=== PATIENT | female | born 1955 | race Caucasian/White ===

== ENCOUNTER 2017-04-03 15:02 | Inpatient (IN) | payer OTHER ==
[~2017-04-03] VITALS: Ht 177.8 cm; Wt 84.0 kg
[~2017-04-03 15:02] MED LIST: ALBU8.5H3 INH; ASPI81TA16 PO; FLOV220 INHALATION; LISI-313 PO; MEGE40TA PO; METH10TA2 PO; PANT40TA3 PO; PRED20TA PO; TRAM-40 PO
[2017-04-03] MEDS ORDERED: LEVALBUTEROL (NEB) 1.25 MG/0.5 ML AMP HHN ONE (15:30)
[2017-04-03] MEDS ORDERED: IPRATROPIUM (NEB) 0.5 MG/2.5 ML AMP HHN ONE (15:30)
[2017-04-03] MEDS ORDERED: ASPIRIN 81 MG TAB PO ONE (16:00)
[2017-04-03 16:10] LABS: BASOPHIL # 0.1 10^3/ul (0.0-0.1); BASOPHILS % 0.6 % (0.0-2.0); EOSINOPHILS # 0.3 10^3/ul (0.0-0.5); EOSINOPHILS % 2.8 % (0.0-7.0); HEMATOCRIT 47.4 % (37.0-47.0); HEMOGLOBIN 15.5 g/dl (12.0-16.0); LYMPHOCYTES # 2.1 10^3/ul (0.8-2.9); LYMPHOCYTES % 20.6 % (15.0-51.0); MEAN CORPUSCULAR HEMOGLOBIN 32.8 pg (29.0-33.0); MEAN CORPUSCULAR HGB CONC 32.7 g/dl (32.0-37.0); MEAN CORPUSCULAR VOLUME 100.2 fl (82.0-101.0); MEAN PLATELET VOLUME 10.8 fl (7.4-10.4); MONOCYTE # 1.1 10^3/ul (0.3-0.9); MONOCYTES % 10.7 % (0.0-11.0); NEUTROPHIL # 6.4 10^3/ul (1.6-7.5); NEUTROPHILS % 64.5 % (39.0-77.0); PLATELET COUNT 174 10^3/UL (140-415); RED BLOOD COUNT 4.73 10^6/ul (4.20-5.40); RED CELL DISTRIBUTION WIDTH 12.7 % (11.5-14.5); WHITE BLOOD COUNT 9.9 10^3/ul (4.8-10.8)
--- NOTE | 2017-04-03 16:20 | RADRPT ---
PROCEDURE: Chest x-ray CLINICAL INDICATION: Chest pain TECHNIQUE: Chest single view COMPARISON: 01/27/2016 FINDINGS: The heart is normal in size. The pulmonary vessels are normal in caliber. The lungs are clear. Th e costophrenic angles are sharp. There are healed right-sided rib fractures. IMPRESSION: No acute cardiopulmonary disease. Healed right-sided rib fractures RPTAT: HH .Jake Holt MD, MD Date Time Electronically viewed and signed by .Jake Holt MD, on 04/03/2017 16:19 .W/
[2017-04-03 16:28] LABS: CALCIUM 9.2 mg/dl (8.4-10.2); CREATININE 2.12 mg/dl (0.44-1.00); POTASSIUM 5.3 mmol/L (3.5-5.1)
[2017-04-03 16:42] LABS: TROPONIN-I 0.033 ng/ml (0.00-0.12)
--- NOTE | 2017-04-03 19:47 | ERD ---
ER Documentation Chief Complaint Chief Complaint pt bib family with c/o sob, wears home o2, hx CHF HPI This 61-year-old female presents with increasing shortness of breath. Even on home O2 she is having more shortness of breath has a history of COPD. She also has a history of congestive heart failure. She has had some mild cough with no fever or chills. Shortness of breath is not responding to home treatments. ROS All systems reviewed and are negative except as per history of present illness. Medications Home Meds Active Scripts Fluticasone Propionate* (Flovent* 220) 13 Gm Aer.w.adap, 2 PUFF INHALATION BID, #1 INHALER Prov:SUMEET PERAZA MD 08/15/15 Prednisone* (Prednisone*) 20 Mg Tab, 20 MG PO BID, #8 TAB Prov:SUMEET PERAZA MD 08/15/15 Albuterol Sulfate* (Proair HFA*) 8.5 Gm Hfa.aer.ad, 2 PUFF INH Q4H Y for WHEEZING AND SOB, #1 INHALER Prov:SUMEET PERAZA MD 08/15/15 Reported Medications Lisinopril* (Lisinopril*) 5 Mg Tablet, 5 MG PO DAILY, #30 TAB 06/30/15 Pantoprazole* (Protonix*) 40 Mg Tablet.dr, 40 MG PO DAILY, TAB 06/30/15 Tramadol Hcl* (Ultram*) 50 Mg Tablet, 50 MG PO DAILY Y for PAIN, TAB 06/30/15 Megestrol Acetate* (Megace*) 40 Mg Tab, 40 MG PO TID, TAB 06/30/15 Aspirin (LOW DOSE ASPIRIN EC) 81 Mg Tablet.dr, 81 MG PO DAILY, #30 TAB 06/30/15 Methadone Hcl* (Methadone*) 10 Mg Tab, 130 MG PO DAILY, TAB 06/30/15 Allergies Allergies: Coded Allergies: No Known Allergy (Unverified , 01/29/16) PMhx/Soc History of Surgery: No Anesthesia Reaction: No Hx Neurological Disorder: No Hx Respiratory Disorders: Yes (COPD) Hx Cardiac Disorders: Yes (CHF) Hx Psychiatric Problems: No Hx Miscellaneous Medical Probl: No Hx Alcohol Use: No Hx Substance Use: Yes (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 Neck: Full range of motion..~ No meningismus. Resp: Oral expiratory wheezes, mild tachypnea Cardio: Regular tachycardia, no murmurs Abd: Soft, non tender, non distended. Normal bowel sounds Skin: No petechiae or rashes Ext: No cyanosis, or edema Neur: Awake and alert and oriented 3, no focal deficits Psych: Normal Mood and Affect Result Diagram: 04/03/17 1535 04/03/17 1535 Results 24 hrs Laboratory Tests Test 04/03/17 15:35 White Blood Count 9.910^3/ul Red Blood Count 4.7310^6/ul Hemoglobin 15.5g/dl Hematocrit 47.4% Mean Corpuscular Volume 100.2fl Mean Corpuscular Hemoglobin 32.8pg Mean Corpuscular Hemoglobin Concent 32.7g/dl Red Cell Distribution Width 12.7% Platelet Count 41234^3/UL Mean Platelet Volume 10.8fl Neutrophils % 64.5% Lymphocytes % 20.6% Monocytes % 10.7% Eosinophils % 2.8% Basophils % 0.6% Nucleated Red Blood Cells % 0.0/100WBC Neutrophils # 6.410^3/ul Lymphocytes # 2.110^3/ul Monocytes # 1.110^3/ul Eosinophils # 0.310^3/ul Basophils # 0.110^3/ul Nucleated Red Blood Cells # 0.010^3/ul Sodium Level 132mmol/L Potassium Level 5.3mmol/L Chloride Level 86mmol/L Carbon Dioxide Level 37mmol/L Anion Gap 14 Blood Urea Nitrogen 56mg/dl Creatinine 2.12mg/dl Glucose Level 68mg/dl Calcium Level 9.2mg/dl Troponin I 0.033ng/ml B-Type Natriuretic Peptide 501PG/ML Current Medications Medications (Trade) Dose Ordered Sig/Nallely Route PRN Reason Start Time Stop Time Status Last Admin Dose Admin Levalbuterol (Xopenex Neb) 2.5 mg ONCE ONCE HHN 04/03/17 15:30 04/03/17 15:31 DC 04/03/17 15:37 Ipratropium Hurley (Atrovent 0.02% (Neb)) 1 mg ONCE ONCE HHN 04/03/17 15:30 04/03/17 15:31 DC 04/03/17 15:37 Aspirin (Aspirin) 324 mg ONCE ONCE PO 04/03/17 16:00 04/03/17 16:01 DC 04/03/17 16:13 Methylprednisolone Sodium Succinate 125 mg 125 mg ONCE ONCE IV 04/03/17 20:00 04/03/17 20:01 UNV Sodium Chloride (NS) 1,000 ml @ 1,000 mls/hr Q1H ONCE IV 04/03/17 20:00 04/03/17 20:59 UNV Procedures/MDM COPD exacerbation with significant on and off tachycardia as well as dehydration. She has dry mucous membranes and a very high BUN and likely secondary to contraction alkalosis. Has baseline renal insufficiency. He was given treatments of Xopenex Atrovent given Solu-Medrol. Also gave her a liter of fluid for her dehydration. Mild hyponatremia is likely secondary to dehydration as well. Patient is still tachycardic and has shortness of breath I think she definitely warrants admission for further treatment of the COPD and careful hydration and consideration of her concomitant congestive heart failure which does not appear to be exacerbated currently. Panel Dr. Min is admitting EKG interpretation #1: Sinus tachycardia rate of 118, right axis deviation, no ST elevations or depressions or T-wave inversions concerning for his acute ischemia, artifact in V4. As you interpretation #2: Sinus tachycardia rate of 107, 3 days deviation, no ST or T-wave changes concerning for acute ischemia. Departure Diagnosis: Primary Impression: COPD exacerbation Additional Impressions: Dehydration Tachycardia Hyponatremia Hyperkalemia Renal insufficiency RK MENDOZA DO Apr 03, 2017 19:47
[2017-04-03] MEDS ORDERED: METHYLPREDNISOLONE 125 MG INJ IV ONE (20:00)
[2017-04-03] MEDS ORDERED: SOD CHLORIDE 0.9% 1,000 ML IV ONE (20:00)
[2017-04-03] MEDS ORDERED: ACETAMINOPHEN 325 MG TAB PO PRN ×2 (20:00→22:30)
[2017-04-03] MEDS ORDERED: ONDANSETRON 4 MG INJ IV PRN ×2 (20:00→22:30)
[2017-04-03 20:48] LABS: CK-MB 4.92 ng/ml (0.0-2.4); TROPONIN-I 0.063 ng/ml (0.00-0.12)
[2017-04-03 21:00] VITALS: Ht 177.8 cm; Wt 84.0 kg
[2017-04-03] MEDS ORDERED: SPIR100T PO (21:42)
[2017-04-03] MEDS ORDERED: FURO40SO PO (21:42)
[2017-04-03 22:22] VITALS: BP 100/64; PULSE 98; RESP 20
[2017-04-03] MEDS ORDERED: BISACODYL (EC) 5 MG TAB PO PRN (22:30)
[2017-04-03] MEDS ORDERED: NACL 0.9% 3 ML SYG IV SCH (22:30)
[2017-04-03] MEDS ORDERED: DOCUSATE SODIUM 100 MG CAP PO PRN (22:30)
[2017-04-03 23:36] VITALS: PULSE 95
[2017-04-03 23:37] VITALS: BP 100/65; RESP 20
[2017-04-04] VITALS (11 sets, daily range): BP systolic 90–117; BP diastolic 53–71; PULSE 85–118; RESP 18–21
[2017-04-04] MEDS: ALBUTEROL/IPRATROPIUM (NEB) 3 ML AMP HHN SCH ×6 (01:00→20:43)
[2017-04-04] MEDS ORDERED: morphine 2 MG INJ IV ONE (05:02)
[2017-04-04] MEDS: METHYLPREDNISOLONE 40 MG INJ IV SCH ×3 (05:11→21:07)
--- NOTE | 2017-04-04 05:56 | HP ---
Date/Time of Note Date/Time of Note DATE: 04/04/17 TIME: 05:40 Assessment/Plan VTE Prophylaxis VTE Prophylaxis Intervention: SCD's Lines/Catheters IV Catheter Type (from [facility]): Saline Lock Assessment/Plan Chief Complaint/Hosp Course This is a 61-year-old female being admitted to the telemetry floor for: #1 shortness of breath: Likely COPD exacerbation versus CHF exacerbation. Patient has poor air movement bilaterally with mild expiratory wheezes. There are no crackles or rales heard on exam. She does not appear volume overloaded. At the current time I do feel like this is more so a COPD exacerbation. We will continue duo nebs every 4 hours. She received a loading dose steroids in the ED will continue Solu-Medrol 30 mg IV 8 hours. We will continue patient's home breathing treatments. As she has been dealing with the symptoms from her approximately 2 weeks and she lives in a senior citizen home I will at the current time started on Levaquin 750 mg every 48 hours, renally dose. I will also try to get a sputum sample for culture. #2 acute on chronic kidney disease: We will check a renal ultrasound, microscopic UA. Will consult nephrology. Renally dose medications. #3 COPD: We will resume all medications, in addition treat as per #1. #4 diabetes mellitus: Diabetic controlled diet, will hold patient's home oral medications, insulin sliding scale #5 CHF: Patient at the current time does not appear to be in any acute heart failure. BNP is 500. Will order an echocardiogram to assess heart function. #6 hepatitis C: Continue monitor #7 history of heroin use: Patient is currently on methadone. She takes approximately methadone 130 mg once daily. Will need to confirm with patient's pain management clinic at [facility] in the a.m. to confirm the patient's dosage. #8 DVT GI prophylaxis: SCDs, Protonix Further treatment strategy will be implemented as per the clinical course Problems: HPI/ROS Admit Date/Time Admit Date/Time Apr 03, 2017 at 19:47 Hx of Present Illness Chief complaint: Shortness of breath This 61-year-old female presents with increasing shortness of breath. Even on home O2 she is having more shortness of breath has a history of COPD. She also has a history of congestive heart failure. She has had some mild cough with no fever or chills. Shortness of breath is not responding to home treatments. Patient states that she is on approximately 3 L of home O2. She does state that she has noticed wheezing and at times she has also coughed up olmstead phlegm. She lives in a senior citizen home where she is on sick contacts. Allergies: NKDA Medications: See SERGIO GARCIA Const: As per HPI Eyes : No pain discharge or redness or change in visual acuity ENT: No pain, sore throat, congestion, congestion, dysphagia or discharge Respiratory: As per HPI Cardiovascular: As per HPI GI : no change in appetite, abdominal pain, nausea, vomiting, diarrhea, constipation, or change in the color his stool Genitourinary: No dysuria, hematuria, flank pain , discharge or CVA tenderness Musculoskeletal: No joint pain, back pain, neck pain, restricted range of motion in neck or joints Skin: No rash, bruising or hives Neuro: No headache, dizziness, syncope, seizure, focal weakness Endocrine: No polyuria, polydipsia, temperature intolerance Psych: No hallucination, depression, anxiety or suicidal ideation PMH/Family/Social Past Medical History Diabetes mellitus COPD, CHF, history of endocarditis, hepatitis C Past Surgical History Past Surgical Hx: appendectomy Family History Significant Family History: no pertinent family hx Social History Alcohol Use: rarely Smoking Status: Current every day smoker Drug Use: other (Last heroin use 2009) Exam/Review of Systems Vital Signs Vitals Vital Signs Date Time Temp Pulse Resp B/P Pulse Ox O2 Delivery O2 Flow Rate FiO2 04/04/17 04:48 2.0 04/04/17 04:48 98 24 86 Nasal Cannula 21 04/04/17 04:05 98.7 111/71 Exam Exam General: Patient is lying in bed in no acute respiratory distress HEENT: Atraumatic, normocephalic. The pupils are equal, round and reactive. Extraocular motor are intact Neck: Supple with full range of motion. No rigidity or meningismus Chest: Right anterior chest tender to palpation Lungs: Poor air movement bilaterally, mild expiratory rales, Heart: Normal S1-S2, Regular rhythm and rate. No overt murmurs appreciated Abdomen: Soft , nontender, nondistended , bowel sounds are present. No guarding no rebound tenderness , No masses or organomegaly. No costovertebral temporal angle mass Extremities: Normal to inspection, no edema no cyanosis Neurologic: Normal mental status, speech normal, cranial nerves II through XII are intact, motor and sensory are intact, no focal weakness Additional Comments PROCEDURE: Chest x-ray CLINICAL INDICATION: Chest pain TECHNIQUE: Chest single view COMPARISON: 01/27/2016 FINDINGS: The heart is normal in size. The pulmonary vessels are normal in caliber. The lungs are clear. The costophrenic angles are sharp. There are healed right- sided rib fractures. IMPRESSION: No acute cardiopulmonary disease. Healed right-sided rib fractures RPTAT: HH .Jake Holt MD, MD Date Time Electronically viewed and signed by .Jake Holt MD, MD on 04/03/2017 16:19 .W/ CC: RK MENDOZA DO EKG interpretation #1: Sinus tachycardia rate of 118, right axis deviation, no ST elevations or depressions or T-wave inversions concerning for his acute ischemia, artifact in V4. EKG interpretation #2: Sinus tachycardia rate of 107, , no ST or T-wave changes concerning for acute ischemia. Above as per ED physician documentation Labs Result Diagram: 04/03/17 1535 04/03/17 1535 Medications Medications Current Medications Ondansetron HCl (Zofran Inj) 4 mg Q6H PRN IV NAUSEA AND/OR VOMITING; Start at 22:30 Acetaminophen (Tylenol Tab) 650 mg Q6H PRN PO PAIN LEVEL 1-3 OR FEVER; Start 04/03/17 at 22:30 Docusate Sodium (Colace) 100 mg Q12H PRN PO CONSTIPATION; Start 04/03/17 at 22 :30 Bisacodyl (Dulcolax) 5 mg DAILY PRN PO CONSTIPATION; Start 04/03/17 at 22:30 Pantoprazole (Protonix Iv) 40 mg DAILY@06 IV Last administered on 04/04/17 05 :11; Admin Dose 40 MG; Start 04/04/17 at 06:00 Methylprednisolone Sodium Succinate (Solu-Medrol) 20 mg Q8 IV Last administered on 11/17/17at 05:11; Admin Dose 20 MG; Start 04/04/17 at 06:00 Albuterol (Ventolin Hfa) 2 puff Q4H PRN INH WHEEZING AND SOB; Start 04/04/17 at 06:00 Aspirin (Halfprin) 81 mg DAILY PO ; Start 04/04/17 at 09:00 Methadone HCl (Methadone) 130 mg DAILY PO ; Start 04/04/17 at 09:00; Status UNV Pantoprazole (Protonix Tab) 40 mg DAILY@06 PO ; Start 04/04/17 at 06:00 Spironolactone (Aldactone) 100 mg BID PO ; Start 04/04/17 at 09:00 Tramadol HCl (Ultram) 50 mg DAILY PRN PO PAIN; Start 04/04/17 at 06:00 Miscellaneous Information 2 puff BID INHALATION ; Start 04/04/17 at 09:00; Status UNV LINK VERDE Apr 04, 2017 05:50
[2017-04-04 05:57] LABS: BASOPHILS % 0.1 % (0.0-2.0); EOSINOPHILS % 0.1 % (0.0-7.0); HEMATOCRIT 42.6 % (37.0-47.0); HEMOGLOBIN 13.7 g/dl (12.0-16.0); LYMPHOCYTES # 0.8 10^3/ul (0.8-2.9); LYMPHOCYTES % 10.5 % (15.0-51.0); MEAN CORPUSCULAR HEMOGLOBIN 32.4 pg (29.0-33.0); MEAN CORPUSCULAR HGB CONC 32.2 g/dl (32.0-37.0); MEAN CORPUSCULAR VOLUME 100.7 fl (82.0-101.0); MEAN PLATELET VOLUME 11.2 fl (7.4-10.4); MONOCYTE # 0.1 10^3/ul (0.3-0.9); MONOCYTES % 0.9 % (0.0-11.0); NEUTROPHIL # 6.7 10^3/ul (1.6-7.5); NEUTROPHILS % 87.6 % (39.0-77.0); RED BLOOD COUNT 4.23 10^6/ul (4.20-5.40); RED CELL DISTRIBUTION WIDTH 12.8 % (11.5-14.5); WHITE BLOOD COUNT 7.7 10^3/ul (4.8-10.8)
[2017-04-04] MEDS ORDERED: PANTOPRAZOLE 40 MG INJ IV SCH (06:00)
[2017-04-04] MEDS ORDERED: LEVOFLOXACIN 750MG/D5W (PMX) 150 ML IVPB SCH (06:00)
[2017-04-04] MEDS ORDERED: traMADol 50 MG TAB PO PRN (06:00)
[2017-04-04] MEDS ORDERED: PANTOPRAZOLE (EC) 40 MG TAB PO SCH (06:00)
[2017-04-04] MEDS ORDERED: NACL 3% FOR INHALATION 15 ML NEBU NEB ONE (06:00)
[2017-04-04] MEDS ORDERED: ALBUTEROL HFA 8 GM INHALER INH PRN (06:00)
[2017-04-04 06:32] LABS: ALBUMIN 3.4 g/dl (3.3-4.9); BILIRUBIN,INDIRECT 0.1 mg/dl (0-1.1); BILIRUBIN,TOTAL 0.1 mg/dl (0.2-1.3); CALCIUM 8.9 mg/dl (8.4-10.2); CHOL/HDL RATIO 2.6 RATIO; CREATININE 2.19 mg/dl (0.44-1.00); MAGNESIUM 2.4 mg/dl (1.7-2.5); POTASSIUM 5.9 mmol/L (3.5-5.1); TOTAL PROTEIN 6.8 g/dl (6.1-8.1)
[2017-04-04 06:40] LABS: CK-MB 4.85 ng/ml (0.0-2.4); TROPONIN-I 0.051 ng/ml (0.00-0.12)
[2017-04-04 06:50] LABS: THYROID STIMULATING HORMONE 0.801 MIU/L (0.465-4.680)
[2017-04-04 07:00] LABS: PLATELET COUNT 139 10^3/UL (140-415); POSITIVE DIFF @See below
[2017-04-04] MEDS: METHADONE 10 MG TAB PO SCH (07:05)
[2017-04-04] MEDS ORDERED: METHADONE 10 MG TAB PO SCH (09:00)
[2017-04-04] MEDS: ASPIRIN (EC) 81 MG TAB PO SCH (09:34)
[2017-04-04] MEDS: SPIRONOLACTONE 50 MG TAB PO SCH ×2 (09:34→21:07)
[2017-04-04] MEDS: LEVOFLOXACIN 750MG/D5W (PMX) 150 ML IVPB SCH (09:34)
--- NOTE | 2017-04-04 12:12 | RADRPT ---
PROCEDURE: US kidney CLINICAL INDICATION: Acute renal failure TECHNIQUE: Multiple real-time images were acquired COMPARISON: Renal ultrasound 01/27/2016 FINDINGS: The right kidney measures 9.4 cm in length; the right kidney previously measured 10.1 cm in length. The left kidney measures 10.8 cm in length; the left kidney previously measured 10.6 cm in length. Bilateral kidney parenchymal echogenicity is slightly increased. The previously noted right kidney s mall presumed stone is not seen on this study. Of note, kidney stones may not be visualized by sonog sulaiman. The previously noted 10 x 8 mm right kidney possible cyst now measures 14 mm in diameter. The previo usly noted 2.0 x 1.9 cm right kidney hypoechoic finding now measures 2.3 x 1.9 cm and may have a sli ghtly irregular wall. New 10 x 9 mm left kidney hypoechoic finding, too small to characterize. No abnormal perirenal fluid collections seen. No hydronephrosis seen. The bladder is predominately collapsed and thus not optimally assessed. IMPRESSION: 1. Bilateral kidney parenchyma slightly increased echogenicity which may be secondary to medical re nal disease. No hydronephrosis seen. 2. The previously noted right kidney small presumed stone is not seen on this study. 3. New too small to characterize left kidney hypoechoic finding, possibly cystic. Increase in size o f the right kidney too small to characterize possible cyst. Increase in one dimension of the larger right kidney hypoechoic finding which may have a slightly irregular wall. Consider abdomen CT or MR scan for further analysis. RPTAT: TT Physician Danielle Date Time Electronically viewed and signed by Physician Danielle on 04/04/2017 12:11 SHERIF/
--- NOTE | 2017-04-04 13:21 | RADRPT ---
Vent Rate: 95 bpm RR Interval: 0 msec AK Interval: 174 msec QRS Duration: 70 msec QT Interval: 354 msec QTC Interval: 444 msec P-R-T [place]: 82 - 91 - 80 degrees Sinus rhythm with premature atrial complexes with aberrant conduction Septal infarct , age undetermined Possible Lateral infarct , age undetermined Abnormal ECG Electronically Signed By: Tam Samayoa [id number]
[2017-04-04] MEDS: MOMETASONE 0.24 GM INHALER INH SCH ×2 (13:24→21:19)
--- NOTE | 2017-04-04 17:57 | PN ---
Date/Time of Note Date/Time of Note DATE: 04/04/17 TIME: 17:39 Assessment/Plan VTE Prophylaxis VTE Prophylaxis Intervention: ambulation Lines/Catheters IV [facility] Saline Lock Urinary Cath still in place: No Assessment/Plan Assessment/Plan 1. SOB secondary to COPD exacerbation versus CHF exacerbation - Will continue on bronchodilators, O2, Steroids, and levaquin. - Solu-Medrol 30 mg IV 8 hours. 2. acute on chronic kidney disease - Renal US shows bilateral kidney parenchyma slightly increased echogenicity which may be secondary to medical renal disease. No hydronephrosis seen. - Nephrology consult placed 3. COPD - We will resume all medications, in addition treat as per #1. 4. compensated CHF - BNP is 500 - Will order an echocardiogram to assess heart function. 5. hepatitis C - Continue monitoring 6. history of heroin use - Currently on methadone - She takes approximately methadone 130 mg once daily - Will continue home dose 7. Disposition - Continue monitoring on Telemetry Subjective 24 Hr Interval Summary Free Text/Dictation Patient resting in bed and appears labored when talking. No acute overnight events or new complaints. Patient did have 7 beats of NSVT but was asymptomatic. Patient is currently on Methadone but QT is normal Exam/Review of Systems Vital Signs Vitals Vital Signs Date Time Temp Pulse Resp B/P Pulse Ox O2 Delivery O2 Flow Rate FiO2 04/04/17 17:02 97 22 Nasal Cannula 2.0 04/04/17 15:27 98.1 117/55 91 04/04/17 09:19 Intake and Output 04/03/17 04/03/17 04/04/17 14:59 22:59 06:59 Intake Total 500 ml Balance 500 ml Exam General: in mild respiratory distress HEENT: Atraumatic, normocephalic. The pupils are equal, round and reactive. Extraocular motor are intact Neck: Supple with full range of motion. Chest: Right anterior chest tender to palpation Lungs: Poor air movement bilaterally, mild expiratory rales, no wheezing Heart: Normal S1-S2, Regular rhythm and rate. No murmurs appreciated Abdomen: Soft , nontender, nondistended , bowel sounds are present. No guarding no rebound tenderness , Extremities: Normal to inspection, no edema no cyanosis Neurologic: Normal mental status, speech normal, cranial nerves II through XII are intact, motor and sensory are intact, no focal weakness Results Result Diagram: 04/04/17 0515 04/04/17 0515 Results 24 hrs Laboratory Tests Test 04/03/17 19:20 04/04/17 05:15 Creatine Kinase 58 53 Creatine Kinase Index 8.5 9.2 Creatinine Kinase MB (Mass) 4.92 H 4.85 H Troponin I 0.063 0.051 White Blood Count 7.7 # Red Blood Count 4.23 Hemoglobin 13.7 Hematocrit 42.6 Mean Corpuscular Volume 100.7 Mean Corpuscular Hemoglobin 32.4 Mean Corpuscular Hemoglobin Concent 32.2 Red Cell Distribution Width 12.8 Platelet Count 139 #L Mean Platelet Volume 11.2 H Neutrophils % 87.6 H Lymphocytes % 10.5 L Monocytes % 0.9 Eosinophils % 0.1 Basophils % 0.1 Nucleated Red Blood Cells % 0.0 Neutrophils # 6.7 Lymphocytes # 0.8 Monocytes # 0.1 L Eosinophils # 0.0 Basophils # 0.0 Nucleated Red Blood Cells # 0.0 Sodium Level 130 L Potassium Level 5.9 H Chloride Level 89 L Carbon Dioxide Level 33 H Anion Gap 14 Blood Urea Nitrogen 65 H Creatinine 2.19 H Glucose Level 323 #H Hemoglobin A1c 5.7 Calcium Level 8.9 Magnesium Level 2.4 Total Bilirubin 0.1 L Direct Bilirubin 0.00 Indirect Bilirubin 0.1 Aspartate Amino Transf (AST/SGOT) 44 Alanine Aminotransferase (ALT/SGPT) 46 Alkaline Phosphatase 114 Total Protein 6.8 Albumin 3.4 Globulin 3.40 H Albumin/Globulin Ratio 1.00 Triglycerides Level 130 Cholesterol Level 115 LDL Cholesterol, Calculated 46 HDL Cholesterol 43 Cholesterol/HDL Ratio 2.6 Thyroid Stimulating Hormone (TSH) 0.801 Medications Medications Current Medications Ondansetron HCl (Zofran Inj) 4 mg Q6H PRN IV NAUSEA AND/OR VOMITING; Start at 22:30 Acetaminophen (Tylenol Tab) 650 mg Q6H PRN PO PAIN LEVEL 1-3 OR FEVER; Start 04/03/17 at 22:30 Docusate Sodium (Colace) 100 mg Q12H PRN PO CONSTIPATION; Start 04/03/17 at 22 :30 Bisacodyl (Dulcolax) 5 mg DAILY PRN PO CONSTIPATION; Start 04/03/17 at 22:30 Methylprednisolone Sodium Succinate (Solu-Medrol) 20 mg Q8 IV Last administered on 04/04/17 13:29; Admin Dose 20 MG; Start 04/04/17 at 06:00 Albuterol (Ventolin Hfa) 2 puff Q4H PRN INH WHEEZING AND SOB; Start 04/04/17 at 06:00 Aspirin (Halfprin) 81 mg DAILY PO Last administered on 04/04/17 09:34; Admin Dose 81 MG; Start 04/04/17 at 09:00 Spironolactone (Aldactone) 100 mg BID PO Last administered on 04/04/17 09:34 ; Admin Dose 100 MG; Start 04/04/17 at 09:00 Tramadol HCl (Ultram) 50 mg DAILY PRN PO PAIN; Start 04/04/17 at 06:00 Pantoprazole (Protonix Tab) 40 mg DAILY@06 PO ; Start 04/05/17 at 06:00 Methadone HCl 130 mg 130 mg DAILY@06 PO Last administered on 04/04/17 07:05; Admin Dose 130 MG; Start 04/04/17 at 06:00 Levofloxacin/ Dextrose (Levaquin 750 Mg/ D5W 150 ml (Pmx)) 150 ml @ 100 mls/hr Q48H IVPB Last administered on 04/04/17 09:34; Admin Dose 100 MLS/HR; Start 04/04/17 at 09:00 Influenza Virus Vaccine (Fluzone) 0.5 ml ONCE ONCE IM* ; Start 04/05/17 at 09: 00; Stop 04/05/17 at 09:01 JONNY BRAGG MD Apr 04, 2017 17:50
[2017-04-05] VITALS (12 sets, daily range): BP systolic 90–112; BP diastolic 56–67; PULSE 97–145; RESP 18–22
[2017-04-05] MEDS ORDERED: AL HYDROX/MG HYDROX/SIMETH 30 ML CUP PO PRN (00:53)
[2017-04-05] MEDS: ALBUTEROL/IPRATROPIUM (NEB) 3 ML AMP HHN SCH ×5 (01:12→20:32)
[2017-04-05] MEDS: PANTOPRAZOLE (EC) 40 MG TAB PO SCH (05:35)
[2017-04-05] MEDS: METHYLPREDNISOLONE 40 MG INJ IV SCH ×2 (05:35→13:48)
[2017-04-05] MEDS: METHADONE 10 MG TAB PO SCH (05:36)
[2017-04-05] MEDS: MOMETASONE 0.24 GM INHALER INH SCH (08:49)
[2017-04-05] MEDS: ASPIRIN (EC) 81 MG TAB PO SCH (08:51)
[2017-04-05] MEDS: SPIRONOLACTONE 50 MG TAB PO SCH (08:52)
[2017-04-05] MEDS ORDERED: INFLUENZA VIRUS VACCINE 0.5 ML SYG IM* ONE (09:00)
[2017-04-05 09:01] LABS: ABNORMAL IP MESSAGE 1; BASOPHILS % 0.1 % (0.0-2.0); HEMATOCRIT 40.2 % (37.0-47.0); HEMOGLOBIN 13.3 g/dl (12.0-16.0); LYMPHOCYTES # 0.8 10^3/ul (0.8-2.9); LYMPHOCYTES % 3.7 % (15.0-51.0); MEAN CORPUSCULAR HEMOGLOBIN 32.9 pg (29.0-33.0); MEAN CORPUSCULAR HGB CONC 33.1 g/dl (32.0-37.0); MEAN CORPUSCULAR VOLUME 99.5 fl (82.0-101.0); MEAN PLATELET VOLUME 11.2 fl (7.4-10.4); MONOCYTE # 1.1 10^3/ul (0.3-0.9); MONOCYTES % 5.1 % (0.0-11.0); NEUTROPHIL # 20.2 10^3/ul (1.6-7.5); NEUTROPHILS % 90.5 % (39.0-77.0); PLATELET COUNT 136 10^3/UL (140-415); RED BLOOD COUNT 4.04 10^6/ul (4.20-5.40); WHITE BLOOD COUNT 22.4 10^3/ul (4.8-10.8)
[2017-04-05 09:21] LABS: ALBUMIN 3.5 g/dl (3.3-4.9); CALCIUM 9.3 mg/dl (8.4-10.2); CREATININE 2.42 mg/dl (0.44-1.00); MAGNESIUM 2.7 mg/dl (1.7-2.5); PHOSPHORUS 4.4 mg/dl (2.5-4.9)
[2017-04-05 09:47] LABS: POTASSIUM 6.5 mmol/L (3.5-5.1)
[2017-04-05] MEDS ORDERED: NA POLYST SULFON 15 GM/60 ML BTL PO ONE (12:00)
[2017-04-05] MEDS ORDERED: ALBUTEROL/IPRATROPIUM (NEB) 3 ML AMP HHN PRN (12:30)
--- NOTE | 2017-04-05 13:18 | CONS ---
Date/Time of Note Date/Time of Note DATE: 04/05/17 TIME: 13:12 Assessment/Plan Assessment/Plan Chief Complaint/Hosp Course Dyspnea: No CHF by exam, likely from COPD Hyperkalemia: due to renal failure and aldactone Acute renal failure: likely from dehydration Chronic diastolic heart failure: unknown EF. Dry H/o endocarditis Prior heroin abuse -agree with holding lasix and aldactone -IVF -HyperK treatment -echo -COPD management per primary Problems: Consultation Date/Type/Reason Admit Date/Time Apr 03, 2017 at 19:47 Date of Consultation: Apr 05, 2017 Type of Consultation: Cardiology Reason for Consultation dyspnea, r/o CHF Hx of Present Illness 61 yo F with a h/o diastolic CHF, severe COPD on home oxygen, h/o endocarditis years ago, prior heroin abuse, who presented with SOB and was found to have acute renal failure with hyperkalemia. The pt notes that she is being seen and managed by her PMD who had been increasing her lasix up to 80mg and aldactone to 100mg BID without improvement in her SOB. She denies orthopnea, edema. No chest pain per HPI Past Medical History per hPI Past Surgical History Past Surgical Hx: appendectomy Social History Alcohol Use: rarely Smoking Status: Current every day smoker Drug Use: other (Last heroin use 2009) Exam/Review of Systems Vital Signs Vitals Vital Signs Date Time Temp Pulse Resp B/P Pulse Ox O2 Delivery O2 Flow Rate FiO2 04/05/17 12:04 97 04/05/17 11:50 98.0 21 90/56 92 04/05/17 09:44 Nasal Cannula 2.0 04/04/17 09:19 Intake and Output 04/04/17 04/04/17 04/05/17 15:00 23:00 07:00 Intake Total 150 ml 800 ml 900 ml Balance 150 ml 800 ml 900 ml Exam Constitutional: alert, oriented Psych: nl mood/affect, no complaints Head: atraumatic, normocephalic Neck: supple, No jvd Respiratory: diminished breath sounds, No clear to auscultation Cardiovascular: regular rate and rhythm, No edema, No systolic murmur Gastrointestinal: non-tender, soft Neurological: nl mental status, nl speech Skin: No rash or lesions Results EKG: sinus, peaked TWs in limb leads Result Diagram: 04/05/17 0850 04/05/17 0850 Results 24 hrs Laboratory Tests Test 04/05/17 08:50 White Blood Count 22.4 #H Red Blood Count 4.04 L Hemoglobin 13.3 Hematocrit 40.2 Mean Corpuscular Volume 99.5 Mean Corpuscular Hemoglobin 32.9 Mean Corpuscular Hemoglobin Concent 33.1 Red Cell Distribution Width 13.0 Platelet Count 136 L Mean Platelet Volume 11.2 H Neutrophils % 90.5 H Lymphocytes % 3.7 L Monocytes % 5.1 Eosinophils % 0.0 Basophils % 0.1 Nucleated Red Blood Cells % 0.0 Neutrophils # 20.2 H Lymphocytes # 0.8 Monocytes # 1.1 H Eosinophils # 0.0 Basophils # 0.0 Nucleated Red Blood Cells # 0.0 Sodium Level 127 L Potassium Level 6.6 *H Chloride Level 87 L Carbon Dioxide Level 28 Anion Gap 19 H Blood Urea Nitrogen 90 H Creatinine 2.42 H Glucose Level 283 H Calcium Level 9.3 Phosphorus Level 4.4 Magnesium Level 2.7 H Albumin 3.5 Medications Medications Current Medications Ondansetron HCl (Zofran Inj) 4 mg Q6H PRN IV NAUSEA AND/OR VOMITING; Start at 22:30 Acetaminophen (Tylenol Tab) 650 mg Q6H PRN PO PAIN LEVEL 1-3 OR FEVER; Start 04/03/17 at 22:30 Docusate Sodium (Colace) 100 mg Q12H PRN PO CONSTIPATION; Start 04/03/17 at 22 :30 Bisacodyl (Dulcolax) 5 mg DAILY PRN PO CONSTIPATION Last administered on 00:15; Admin Dose 5 MG; Start 04/03/17 at 22:30 Methylprednisolone Sodium Succinate (Solu-Medrol) 20 mg Q8 IV Last administered on 04/05/17 05:35; Admin Dose 20 MG; Start 04/04/17 at 06:00 Aspirin (Halfprin) 81 mg DAILY PO Last administered on 04/05/17 08:51; Admin Dose 81 MG; Start 04/04/17 at 09:00 Spironolactone (Aldactone) 100 mg BID PO Last administered on 04/05/17 08:52 ; Admin Dose 100 MG; Start 04/04/17 at 09:00; Status Future Hold Tramadol HCl (Ultram) 50 mg DAILY PRN PO PAIN; Start 04/04/17 at 06:00 Pantoprazole (Protonix Tab) 40 mg DAILY@06 PO Last administered on 04/05/17 05:35; Admin Dose 40 MG; Start 04/05/17 at 06:00 Methadone HCl 130 mg 130 mg DAILY@06 PO Last administered on 04/05/17 05:36; Admin Dose 130 MG; Start 04/04/17 at 06:00 Levofloxacin/ Dextrose (Levaquin 750 Mg/ D5W 150 ml (Pmx)) 150 ml @ 100 mls/hr Q48H IVPB Last administered on 04/04/17 09:34; Admin Dose 100 MLS/HR; Start 04/04/17 at 09:00 Al Hydrox/Mg Hydrox/Simethicone (Mag-Al Plus) 30 ml Q6H PRN PO GASTROINTESTINAL UPSET Last administered on 04/05/17 01:01; Admin Dose 30 ML; Start 04/05/17 at 00:53 Simethicone 80 mg 80 mg Q6H PRN PO DISTENSION/GAS/BLOATING Last administered on 04/05/17 01:01; Admin Dose 80 MG; Start 04/05/17 at 00:53 Calcium Gluconate/ Sodium Chloride (Ca Gluc/NS) 110 ml @ 110 mls/hr ONCE ONCE IVPB ; Start 04/05/17 at 14:00; Stop 04/05/17 at 14:59 CUAUHTEMOC CORRALES Apr 05, 2017 13:18
[2017-04-05] MEDS ORDERED: CALCIUM GLUCONATE 10% 1 GM in SOD CHLORIDE 0.9% 100 ML IVPB ONE (14:00)
[2017-04-05 14:22] LABS: ADD UMIC YES; UR ASCORBIC ACID 40 mg/dL (NEGATIVE); UR BACTERIA FEW /HPF (NONE SEEN); UR BILIRUBIN (Dip) NEGATIVE (NEGATIVE); UR BLOOD (Dip) NEGATIVE (NEGATIVE); UR CLARITY SLIGHTLY CLOUDY (CLEAR); UR COLOR YELLOW (YELLOW); UR GLUCOSE (Dip) 1+ mg/dL (NEGATIVE); UR KETONES (Dip) NEGATIVE (NEGATIVE); UR LEUKOCYTE ESTERASE (Dip) 2+ Leu/ul (NEGATIVE); UR NITRITE (Dip) NEGATIVE (NEGATIVE); UR RBC 0 /HPF (0-5); UR SPECIFIC GRAVITY (Dip) 1.014 (1.003-1.030); UR SQUAMOUS EPITHELIAL CELL FEW /HPF (FEW); UR TOTAL PROTEIN (Dip) NEGATIVE (NEGATIVE); UR UROBILINOGEN (Dip) NEGATIVE (NEGATIVE)
--- NOTE | 2017-04-05 15:07 | PN ---
Date/Time of Note Date/Time of Note DATE: 04/05/17 TIME: 15:01 Assessment/Plan VTE Prophylaxis VTE Prophylaxis Intervention: SCD's Lines/Catheters IV Catheter Type (from [facility]): [place] Urinary Cath still in place: No Assessment/Plan Chief Complaint/Hosp Course Assessment/Plan 1. SOB secondary to COPD exacerbation versus CHF exacerbation - Will continue on bronchodilators, O2, Steroids, and levaquin. - Solu-Medrol -patient states she had difficulty last night breathing, ?anxiety #hyperK -mod/severe, peaked T waves, patient asymptomatic -calcium gluconate, kayexalate ordered -06/20 high spironolactone dose #uti -on levaquin for COPD ex, will treat as well 2. acute on chronic kidney disease - Renal US shows bilateral kidney parenchyma slightly increased echogenicity which may be secondary to medical renal disease. No hydronephrosis seen. - Nephrology consult placed -worsened today -watters placed 3. COPD - We will resume all medications, in addition treat as per #1. 4. compensated CHF - BNP is 500 - Will order an echocardiogram to assess heart function. -cardiology consulted as medication will need reconciliation, holding spironolactone due to hyperK -lasix held due to LORI 5. hepatitis C - Continue monitoring 6. history of heroin use - Currently on methadone - She takes approximately methadone 130 mg once daily, will have to adjust for renal dose for now, will resume regular dose once regular function/hyperK resolves - Will continue home dose 7. Disposition - Continue monitoring on Telemetry Problems: Subjective 24 Hr Interval Summary Free Text/Dictation states still has difficulty breathing. Exam/Review of Systems Vital Signs Vitals Vital Signs Date Time Temp Pulse Resp B/P Pulse Ox O2 Delivery O2 Flow Rate FiO2 04/05/17 13:54 2.0 04/05/17 13:53 88 20 97 Nasal Cannula 04/05/17 11:50 98.0 90/56 04/04/17 09:19 Intake and Output 04/04/17 04/04/17 04/05/17 15:00 23:00 07:00 Intake Total 150 ml 800 ml 900 ml Balance 150 ml 800 ml 900 ml Exam General: in no acute respiratory distress HEENT: Atraumatic, normocephalic. The pupils are equal, round and reactive. Extraocular motor are intact Neck: Supple with full range of motion. Chest: Right anterior chest tender to palpation Lungs: Poor air movement bilaterally, mild expiratory rales, no wheezing Heart: Normal S1-S2, Regular rhythm and rate. No murmurs appreciated Abdomen: Soft , nontender, nondistended , bowel sounds are present. No guarding no rebound tenderness , Extremities: Normal to inspection, no edema no cyanosis Neurologic: Normal mental status, speech normal, cranial nerves II through XII are intact, motor and sensory are intact, no focal weakness Results Result Diagram: 04/05/17 0850 04/05/17 0850 Results 24 hrs Laboratory Tests Test 04/05/17 03:40 04/05/17 08:50 Urine Random Sodium < 13 L White Blood Count 22.4 #H Red Blood Count 4.04 L Hemoglobin 13.3 Hematocrit 40.2 Mean Corpuscular Volume 99.5 Mean Corpuscular Hemoglobin 32.9 Mean Corpuscular Hemoglobin Concent 33.1 Red Cell Distribution Width 13.0 Platelet Count 136 L Mean Platelet Volume 11.2 H Neutrophils % 90.5 H Lymphocytes % 3.7 L Monocytes % 5.1 Eosinophils % 0.0 Basophils % 0.1 Nucleated Red Blood Cells % 0.0 Neutrophils # 20.2 H Lymphocytes # 0.8 Monocytes # 1.1 H Eosinophils # 0.0 Basophils # 0.0 Nucleated Red Blood Cells # 0.0 Sodium Level 127 L Potassium Level 6.6 *H Chloride Level 87 L Carbon Dioxide Level 28 Anion Gap 19 H Blood Urea Nitrogen 90 H Creatinine 2.42 H Glucose Level 283 H Calcium Level 9.3 Phosphorus Level 4.4 Magnesium Level 2.7 H Albumin 3.5 Medications Medications Current Medications Ondansetron HCl (Zofran Inj) 4 mg Q6H PRN IV NAUSEA AND/OR VOMITING; Start at 22:30 Acetaminophen (Tylenol Tab) 650 mg Q6H PRN PO PAIN LEVEL 1-3 OR FEVER; Start 04/03/17 at 22:30 Docusate Sodium (Colace) 100 mg Q12H PRN PO CONSTIPATION; Start 04/03/17 at 22 :30 Bisacodyl (Dulcolax) 5 mg DAILY PRN PO CONSTIPATION Last administered on t 00:15; Admin Dose 5 MG; Start 04/03/17 at 22:30 Methylprednisolone Sodium Succinate (Solu-Medrol) 20 mg Q8 IV Last administered on 04/05/17 13:48; Admin Dose 20 MG; Start 04/04/17 at 06:00 Aspirin (Halfprin) 81 mg DAILY PO Last administered on 04/05/17 08:51; Admin Dose 81 MG; Start 04/04/17 at 09:00 Spironolactone (Aldactone) 100 mg BID PO Last administered on 04/05/17 08:52 ; Admin Dose 100 MG; Start 04/04/17 at 09:00; Status Future Hold Tramadol HCl (Ultram) 50 mg DAILY PRN PO PAIN; Start 04/04/17 at 06:00 Pantoprazole 40 mg 40 mg DAILY@06 PO Last administered on 04/05/17 05:35; Admin Dose 40 MG; Start 04/05/17 at 06:00 Levofloxacin/ Dextrose (Levaquin 750 Mg/ D5W 150 ml (Pmx)) 150 ml @ 100 mls/hr Q48H IVPB Last administered on 04/04/17 09:34; Admin Dose 100 MLS/HR; Start 04/04/17 at 09:00 Al Hydrox/Mg Hydrox/Simethicone (Mag-Al Plus) 30 ml Q6H PRN PO GASTROINTESTINAL UPSET Last administered on 04/05/17 01:01; Admin Dose 30 ML; Start 04/05/17 at 00:53 Simethicone (Mylicon) 80 mg Q6H PRN PO DISTENSION/GAS/BLOATING Last administered on 04/05/17 01:01; Admin Dose 80 MG; Start 04/05/17 at 00:53 Methadone HCl (Methadone) 30 mg TID PO ; Start 04/06/17 at 07:00 SUMEET VELEZ Apr 05, 2017 15:07
[2017-04-05 16:24] LABS: ADD UMIC NO; UR ASCORBIC ACID 40 mg/dL (NEGATIVE); UR BILIRUBIN (Dip) NEGATIVE (NEGATIVE); UR BLOOD (Dip) NEGATIVE (NEGATIVE); UR CLARITY CLEAR (CLEAR); UR COLOR YELLOW (YELLOW); UR GLUCOSE (Dip) NEGATIVE (NEGATIVE); UR KETONES (Dip) NEGATIVE (NEGATIVE); UR LEUKOCYTE ESTERASE (Dip) NEGATIVE Leu/ul (NEGATIVE); UR NITRITE (Dip) NEGATIVE (NEGATIVE); UR SPECIFIC GRAVITY (Dip) 1.013 (1.003-1.030); UR TOTAL PROTEIN (Dip) NEGATIVE (NEGATIVE); UR UROBILINOGEN (Dip) NEGATIVE (NEGATIVE)
[2017-04-05 16:33] LABS: POTASSIUM,URINE RANDOM 62.2 mmol/L (25-125)
[2017-04-05] MEDS ORDERED: METHADONE 10 MG TAB PO ONE (18:05)
--- NOTE | 2017-04-05 18:19 | QN ---
Documentation Comment [id number] renal consult MAC BECERRA MD Apr 05, 2017 18:19
[2017-04-05 19:49] LABS: ADD UMIC YES; UR ASCORBIC ACID 40 mg/dL (NEGATIVE); UR BACTERIA FEW /HPF (NONE SEEN); UR BILIRUBIN (Dip) NEGATIVE (NEGATIVE); UR BLOOD (Dip) 1+ mg/dL (NEGATIVE); UR CLARITY CLEAR (CLEAR); UR COLOR STRAW (YELLOW); UR GLUCOSE (Dip) NEGATIVE (NEGATIVE); UR KETONES (Dip) NEGATIVE (NEGATIVE); UR LEUKOCYTE ESTERASE (Dip) NEGATIVE Leu/ul (NEGATIVE); UR NITRITE (Dip) NEGATIVE (NEGATIVE); UR RBC 12 /HPF (0-5); UR SPECIFIC GRAVITY (Dip) 1.011 (1.003-1.030); UR TOTAL PROTEIN (Dip) NEGATIVE (NEGATIVE); UR UROBILINOGEN (Dip) NEGATIVE (NEGATIVE)
[2017-04-05 19:54] LABS: HAAIG REFLEX REFLEX FILED
[2017-04-05 20:12] LABS: PROTEIN/CREAT RATIO 0.35 RATIO
[2017-04-05] MEDS ORDERED: NA POLYST SULFON 15 GM/60 ML BTL PR ONE (21:00)
[2017-04-05 21:04] LABS: HEPATITIS B CORE ANTIBODY REACTIVE (NEGATIVE)
[2017-04-05] MEDS: SOD CHLORIDE 0.45% 1,000 ML IV SCH (21:57)
[2017-04-05] MEDS: METHYLPREDNISOLONE 125 MG INJ IV SCH (22:06)
[2017-04-06] VITALS (10 sets, daily range): BP systolic 105–110; BP diastolic 69–110; PULSE 90–178; RESP 20–22
[2017-04-06] MEDS ORDERED: LIDOCAINE 1% (MPF) 5 ML VIAL SC ONE (03:00)
[2017-04-06] MEDS: METHYLPREDNISOLONE 125 MG INJ IV SCH ×2 (06:45→17:31)
[2017-04-06] MEDS: PANTOPRAZOLE (EC) 40 MG TAB PO SCH (06:45)
[2017-04-06] MEDS: METHADONE 10 MG TAB PO SCH ×3 (07:06→21:38)
[2017-04-06] MEDS: ALBUTEROL/IPRATROPIUM (NEB) 3 ML AMP HHN SCH ×3 (07:32→19:40)
[2017-04-06 08:18] LABS: BASOPHILS % 0.2 % (0.0-2.0); HEMATOCRIT 39.9 % (37.0-47.0); HEMOGLOBIN 13.2 g/dl (12.0-16.0); LYMPHOCYTES # 0.8 10^3/ul (0.8-2.9); LYMPHOCYTES % 4.9 % (15.0-51.0); MEAN CORPUSCULAR HEMOGLOBIN 32.7 pg (29.0-33.0); MEAN CORPUSCULAR HGB CONC 33.1 g/dl (32.0-37.0); MEAN CORPUSCULAR VOLUME 98.8 fl (82.0-101.0); MEAN PLATELET VOLUME 11.9 fl (7.4-10.4); MONOCYTE # 0.5 10^3/ul (0.3-0.9); NEUTROPHIL # 14.9 10^3/ul (1.6-7.5); NEUTROPHILS % 90.9 % (39.0-77.0); PLATELET COUNT 107 10^3/UL (140-415); RED BLOOD COUNT 4.04 10^6/ul (4.20-5.40); RED CELL DISTRIBUTION WIDTH 13.3 % (11.5-14.5); WHITE BLOOD COUNT 16.4 10^3/ul (4.8-10.8)
--- NOTE | 2017-04-06 09:19 | RADRPT ---
Echocardiogram Report Patient Name: MARIELY MACDONALD Gender: Female Date: 1955 Study Date: 05-Apr-2017 Pastry Mixer: [id number] Location: 5539 Ref. Physician: CUAUHTEMOC ROSA Quality: Technically Difficult Study Procedures: Transthoracic echocardiogram with complete 2D, M-Mode, and doppler examination. Indications: Congestive Heart Failure. 2D/M Mode Doppler Measurement Value Normal Ranges Measurement Value Normal Ranges AoR Diam MM 3.2 cm JULIAN Vmax 2.0 cm2 LA/Ao MM 1.1 JULIAN VTI 2.0 cm2 LA Dimen MM 3.6 cm AV Mean [place] 1.3 m/sec LVIDd 2D 4.6 3.5 - 5.6 cm AV Mean PG 7.9 mmHg LVIDs 2D 3.1 2.1 - 4.1 cm AV Peak [place] 1.9 m/sec LVPWd 2D 1.1 0.6 - 1.1 cm AV Peak PG 15.0 mmHg IVSd 2D 1.1 0.6 - 1.1 cm AV VTI 33.8 cm EDV 2D 97.7 cm3 LVOT Peak [place] 1.1 m/sec ESV 2D 30.6 cm3 LVOT Peak PG 4.8 mmHg EF 2D 60.0 50.0 - 65.0 % MV E Peak [place] 0.8 m/sec LVOT Diam 2.1 cm MV A Peak [place] 1.0 m/sec MV E/A 0.8 MV Decel Time 133 msec MV Decel [place] 6 MV E/A 0.8 TR Peak [place] 2.8 m/sec TR Peak PG 31.2 mmHg RVSP 34.0 mmHg RA Pressure 3.0 Findings Left Ventricle: Hyperdynamic left ventricular systolic function. Normal left ventricular cavity size. Normal left ventricular wall thickness. Ejection fraction is visually estimated at 70 %. Tissue Doppler/Mitral Doppler indices are consistent with impaired relaxation (Stage I diastolic dysfunction). Mild left ventricular outflow tract obstruction. Max PG30 mmHg. Right Ventricle: Normal right ventricular size. Normal right ventricular systolic function. Left Atrium: There is mild enlargement of left atrium. Right Atrium: The right atrium is normal in size. Mitral Valve: Normal appearance of the mitral valve. Mild mitral annular calcification. Mild mitral valve regurgitation. Aortic Valve: Normal appearance of the aortic valve. No significant aortic stenosis or insufficiency. Tricuspid Valve: Normal appearance of the tricuspid valve. Estimated peak PA systolic pressure 34 mmHg. There is mild tricuspid regurgitation. Pulmonic Valve: Pulmonic valve not well visualized. Pericardium: Normal pericardium with no significant pericardial effusion. Aorta: Normal aortic root. IVC: Normal size and normal respiratory collapse consistent with normal right atrial pressure. Conclusions Hyperdynamic left ventricular systolic function. Normal left ventricular cavity size. Normal left ventricular wall thickness. Ejection fraction is visually estimated at 70 %. Tissue Doppler/Mitral Doppler indices are consistent with impaired relaxation (Stage I diastolic dysfunction). Mild left ventricular outflow tract obstruction. Possible mild HEATHER but not well seen. Max PG 30 mmHg. No significant valvular stenosis or regurgitation seen. Estimated peak PA systolic pressure 34 mmHg based on RA pressure of 3 mmHg. Electronically Signed By: Cuauhtemoc Rosa 06-Apr-2017 09:19:14 -0800 Patient Name: MARIELY MACDONALD Study Date: 05-Apr-2017 [id number]
[2017-04-06] MEDS: ASPIRIN (EC) 81 MG TAB PO SCH (09:23)
[2017-04-06 09:43] LABS: ALBUMIN 3.4 g/dl (3.3-4.9); ALBUMIN/GLOBULIN RATIO 1.13; CREATININE 1.71 mg/dl (0.44-1.00); POTASSIUM 5.3 mmol/L (3.5-5.1); TOTAL PROTEIN 6.4 g/dl (6.1-8.1)
[2017-04-06 10:10] LABS: ALBUMIN 3.5 g/dl (3.3-4.9); CALCIUM 9.3 mg/dl (8.4-10.2); CREATININE 1.76 mg/dl (0.44-1.00); MAGNESIUM 2.5 mg/dl (1.7-2.5); PHOSPHORUS 4.1 mg/dl (2.5-4.9); POTASSIUM 5.4 mmol/L (3.5-5.1)
[2017-04-06] MEDS ORDERED: GLUCOSE GEL 15 GRAM TUBE PO PRN ×2 (10:30)
[2017-04-06] MEDS ORDERED: DEXTROSE 50% 50 ML SYRINGE IV PRN ×2 (10:30)
[2017-04-06] MEDS ORDERED: GLUCOSE GEL 15 GRAM TUBE BUCCAL PRN (10:30)
[2017-04-06] MEDS ORDERED: GLUCAGON 1 MG INJ IM PRN (10:30)
--- NOTE | 2017-04-06 10:32 | CONS ---
Date/Time of Note Date/Time of Note DATE: 04/06/17 TIME: 10:29 Assessment/Plan Assessment/Plan Chief Complaint/Hosp Course Dyspnea: No CHF by exam, likely from COPD +/- from LVOT obstruction LVOT obstruction: Poorly seen on echo but gradient up to 30mmHg with hyperdynamic EF. Likely worse due to dehydration. Hyperkalemia: due to renal failure and aldactone. Resolving Acute renal failure: likely from dehydration. Improving with IVF Chronic diastolic heart failure: EF hyperdynamic. Still dry H/o endocarditis Prior heroin abuse -not sure if will tolerate bet pamela with her COPD and BP marginal so hold off on CCB. -agree with holding lasix and aldactone -IVF -COPD management per primary Problems: Consultation Date/Type/Reason Admit Date/Time Apr 03, 2017 at 19:47 Initial Consult Date 04/05/17 Type of Consultation: Cardiology 24 HR Interval Summary Free Text/Dictation No o/n events. Feels better. Cr improving Exam/Review of Systems Vital Signs Vitals Vital Signs Date Time Temp Pulse Resp B/P Pulse Ox O2 Delivery O2 Flow Rate FiO2 04/06/17 08:00 102 04/06/17 07:34 20 95 Nasal Cannula 4.0 04/06/17 00:58 98.5 110/110 04/04/17 09:19 Intake and Output 04/05/17 04/05/17 04/06/17 15:00 23:00 07:00 Intake Total 800 ml Output Total 600 ml Balance 200 ml Exam Constitutional: alert, oriented Head: atraumatic, normocephalic Neck: No jvd Respiratory: clear to auscultation, No crackles/rales Cardiovascular: systolic murmur (3/6 BRIAN), No regular rate and rhythm (tachycardic) Gastrointestinal: non-tender, soft Neurological: nl mental status, nl speech Results Result Diagram: 04/06/17 0702 04/06/17 0702 Results 24 hrs Laboratory Tests Test 04/05/17 15:15 04/05/17 17:30 04/05/17 22:26 04/06/17 07:02 Urine Color YELLOW STRAW Urine Clarity CLEAR CLEAR Urine pH 6.0 7.0 Urine Specific [place] 1.013 1.011 Urine Ketones NEGATIVE NEGATIVE Urine Nitrite NEGATIVE NEGATIVE Urine Bilirubin NEGATIVE NEGATIVE Urine Urobilinogen NEGATIVE NEGATIVE Urine Leukocyte Esterase NEGATIVE NEGATIVE Urine Hemoglobin NEGATIVE 1+ H Urine Random Creatinine 65.54 42.71 Urine Random Sodium < 13 L 21 L Urine Random Potassium 62.2 Urine Glucose NEGATIVE NEGATIVE Urine Total Protein NEGATIVE NEGATIVE Urine Microscopic RBC 12 H Urine Microscopic WBC 6 H Urine Bacteria FEW A Urine Eosinophils % 0.0 Urine Osmolality 343 Urine Protein/Creatinine Ratio 0.35 Potassium Level 5.6 H 5.3 H White Blood Count 16.4 #H Red Blood Count 4.04 L Hemoglobin 13.2 Hematocrit 39.9 Mean Corpuscular Volume 98.8 Mean Corpuscular Hemoglobin 32.7 Mean Corpuscular Hemoglobin Concent 33.1 Red Cell Distribution Width 13.3 Platelet Count 107 #L Mean Platelet Volume 11.9 H Neutrophils % 90.9 H Lymphocytes % 4.9 L Monocytes % 3.0 Eosinophils % 0.0 Basophils % 0.2 Nucleated Red Blood Cells % 0.0 Neutrophils # 14.9 H Lymphocytes # 0.8 Monocytes # 0.5 Eosinophils # 0.0 Basophils # 0.0 Nucleated Red Blood Cells # 0.0 Sodium Level 131 L Chloride Level 92 L Carbon Dioxide Level 25 Anion Gap 19 H Blood Urea Nitrogen 85 H Creatinine 1.71 H Glucose Level 477 *H Calcium Level 9.0 Phosphorus Level 4.1 Magnesium Level 2.5 Total Bilirubin 0.0 L Direct Bilirubin 0.00 Indirect Bilirubin 0.0 Aspartate Amino Transf (AST/SGOT) 70 H Alanine Aminotransferase (ALT/SGPT) 58 Alkaline Phosphatase 97 Total Protein 6.4 Albumin 3.4 Globulin 3.00 Albumin/Globulin Ratio 1.13 Medications Medications Current Medications Ondansetron HCl (Zofran Inj) 4 mg Q6H PRN IV NAUSEA AND/OR VOMITING; Start at 22:30 Acetaminophen (Tylenol Tab) 650 mg Q6H PRN PO PAIN LEVEL 1-3 OR FEVER; Start 04/03/17 at 22:30 Docusate Sodium (Colace) 100 mg Q12H PRN PO CONSTIPATION; Start 04/03/17 at 22 :30 Bisacodyl (Dulcolax) 5 mg DAILY PRN PO CONSTIPATION Last administered on 00:15; Admin Dose 5 MG; Start 04/03/17 at 22:30 Aspirin (Halfprin) 81 mg DAILY PO Last administered on 04/06/17 09:23; Admin Dose 81 MG; Start 04/04/17 at 09:00 Spironolactone (Aldactone) 100 mg BID PO Last administered on 04/05/17 08:52 ; Admin Dose 100 MG; Start 04/04/17 at 09:00; Status Future Hold Tramadol HCl (Ultram) 50 mg DAILY PRN PO PAIN; Start 04/04/17 at 06:00 Pantoprazole 40 mg 40 mg DAILY@06 PO Last administered on 04/06/17 06:45; Admin Dose 40 MG; Start 04/05/17 at 06:00 Levofloxacin/ Dextrose (Levaquin 750 Mg/ D5W 150 ml (Pmx)) 150 ml @ 100 mls/hr Q48H IVPB Last administered on 04/04/17 09:34; Admin Dose 100 MLS/HR; Start 04/04/17 at 09:00 Al Hydrox/Mg Hydrox/Simethicone (Mag-Al Plus) 30 ml Q6H PRN PO GASTROINTESTINAL UPSET Last administered on 04/05/17 01:01; Admin Dose 30 ML; Start 04/05/17 at 00:53 Simethicone (Mylicon) 80 mg Q6H PRN PO DISTENSION/GAS/BLOATING Last administered on 04/05/17 01:01; Admin Dose 80 MG; Start 04/05/17 at 00:53 Methadone HCl (Methadone) 30 mg TID PO Last administered on 04/06/17 07:06; Admin Dose 30 MG; Start 04/06/17 at 07:00 Methylprednisolone Sodium Succinate 60 mg 60 mg Q8 IV Last administered on 06:45; Admin Dose 60 MG; Start 04/05/17 at 22:00 Sodium Chloride (1/2 NS) 1,000 ml @ 40 mls/hr Q24H IV Last administered on 21:57; Admin Dose 40 MLS/HR; Start 04/05/17 at 18:30 Miscellaneous Information (* Miscellaneous Pharmacy Order) Discontinue current oral sulfonylur... ONCE ONCE XX ; Start 04/06/17 at 10:30; Stop 04/06/17 at 10:31 Insulin Glargine (Lantus) 13 unit DAILY@20 SC ; Start 04/06/17 at 20:00 Miscellaneous Information (* Miscellaneous Pharmacy Order) HYPOGLYCEMIA PROTOCOL w... ONCE ONCE XX ; Start 04/06/17 at 10:30; Stop 04/06/17 at 10:31 Diagnostic Test (Pha) (Accu-Chek) 1 ea 02 XX ; Start 04/07/17 at 02:00 Miscellaneous Information 1 ea NOTE XX ; Start 04/06/17 at 10:30 Glucose (Glutose) 15 gm Q15M PRN PO DECREASED GLUCOSE; Start 04/06/17 at 10:30 Glucose (Glutose) 22.5 gm Q15M PRN PO DECREASED GLUCOSE; Start 04/06/17 at 10: 30 Dextrose (D50w Syringe) 25 ml Q15M PRN IV DECREASED GLUCOSE; Start 04/06/17 at 10:30 Dextrose (D50w Syringe) 50 ml Q15M PRN IV DECREASED GLUCOSE; Start 04/06/17 at 10:30 Glucagon (Glucagen) 1 mg Q15M PRN IM DECREASED GLUCOSE; Start 04/06/17 at 10: 30 Glucose (Glutose) 15 gm Q15M PRN BUCCAL DECREASED GLUCOSE; Start 04/06/17 at 10:30 CUAUHTEMOC CORRALES Apr 06, 2017 10:32
--- NOTE | 2017-04-06 11:00 | CONS ---
Date/Time of Note Date/Time of Note DATE: 04/06/17 TIME: 10:57 Assessment/Plan Assessment/Plan Chief Complaint/Hosp Course 1. Acute on chronic kidney disease. Renal US shows bilateral kidney parenchyma slightly increased echogenicity which may be secondary to medical renal disease. No hydronephrosis seen. 2. SOB secondary to COPD exacerbation versus CHF exacerbation 3. COPD 4. Hs of CHF 5. HX hepatitis C 6. history of heroin use Problems: Additional Assessment/Plan 1. Avoid nephrotoxic drugs 2. Optimization of kidney function Consultation Date/Type/Reason Admit Date/Time Apr 03, 2017 at 19:47 Initial Consult Date 04/05/17 Type of Consultation: Nephrology Reason for Consultation Dr Dinero Exam/Review of Systems Vital Signs Vitals Vital Signs Date Time Temp Pulse Resp B/P Pulse Ox O2 Delivery O2 Flow Rate FiO2 04/06/17 09:22 178 04/06/17 07:34 20 95 Nasal Cannula 4.0 04/06/17 00:58 98.5 110/110 04/04/17 09:19 Intake and Output 04/05/17 04/05/17 04/06/17 15:00 23:00 07:00 Intake Total 800 ml Output Total 600 ml Balance 200 ml Exam Constitutional: alert, oriented Respiratory: clear to auscultation Cardiovascular: regular rate and rhythm Gastrointestinal: soft Results Result Diagram: 04/06/17 0702 04/06/17 0702 Results 24 hrs Laboratory Tests Test 04/05/17 15:15 04/05/17 17:30 04/05/17 22:26 04/06/17 07:02 Urine Color YELLOW STRAW Urine Clarity CLEAR CLEAR Urine pH 6.0 7.0 Urine Specific Downs 1.013 1.011 Urine Ketones NEGATIVE NEGATIVE Urine Nitrite NEGATIVE NEGATIVE Urine Bilirubin NEGATIVE NEGATIVE Urine Urobilinogen NEGATIVE NEGATIVE Urine Leukocyte Esterase NEGATIVE NEGATIVE Urine Hemoglobin NEGATIVE 1+ H Urine Random Creatinine 65.54 42.71 Urine Random Sodium < 13 L 21 L Urine Random Potassium 62.2 Urine Glucose NEGATIVE NEGATIVE Urine Total Protein NEGATIVE NEGATIVE Urine Microscopic RBC 12 H Urine Microscopic WBC 6 H Urine Bacteria FEW A Urine Eosinophils % 0.0 Urine Osmolality 343 Urine Protein/Creatinine Ratio 0.35 Potassium Level 5.6 H 5.3 H White Blood Count 16.4 #H Red Blood Count 4.04 L Hemoglobin 13.2 Hematocrit 39.9 Mean Corpuscular Volume 98.8 Mean Corpuscular Hemoglobin 32.7 Mean Corpuscular Hemoglobin Concent 33.1 Red Cell Distribution Width 13.3 Platelet Count 107 #L Mean Platelet Volume 11.9 H Neutrophils % 90.9 H Lymphocytes % 4.9 L Monocytes % 3.0 Eosinophils % 0.0 Basophils % 0.2 Nucleated Red Blood Cells % 0.0 Neutrophils # 14.9 H Lymphocytes # 0.8 Monocytes # 0.5 Eosinophils # 0.0 Basophils # 0.0 Nucleated Red Blood Cells # 0.0 Sodium Level 131 L Chloride Level 92 L Carbon Dioxide Level 25 Anion Gap 19 H Blood Urea Nitrogen 85 H Creatinine 1.71 H Glucose Level 477 *H Calcium Level 9.0 Phosphorus Level 4.1 Magnesium Level 2.5 Total Bilirubin 0.0 L Direct Bilirubin 0.00 Indirect Bilirubin 0.0 Aspartate Amino Transf (AST/SGOT) 70 H Alanine Aminotransferase (ALT/SGPT) 58 Alkaline Phosphatase 97 Total Protein 6.4 Albumin 3.4 Globulin 3.00 Albumin/Globulin Ratio 1.13 Medications Medications Current Medications Ondansetron HCl (Zofran Inj) 4 mg Q6H PRN IV NAUSEA AND/OR VOMITING; Start at 22:30 Acetaminophen (Tylenol Tab) 650 mg Q6H PRN PO PAIN LEVEL 1-3 OR FEVER; Start 04/03/17 at 22:30 Docusate Sodium (Colace) 100 mg Q12H PRN PO CONSTIPATION; Start 04/03/17 at 22 :30 Bisacodyl (Dulcolax) 5 mg DAILY PRN PO CONSTIPATION Last administered on 00:15; Admin Dose 5 MG; Start 04/03/17 at 22:30 Aspirin (Halfprin) 81 mg DAILY PO Last administered on 04/06/17 09:23; Admin Dose 81 MG; Start 04/04/17 at 09:00 Spironolactone (Aldactone) 100 mg BID PO Last administered on 04/05/17 08:52 ; Admin Dose 100 MG; Start 04/04/17 at 09:00; Status Future Hold Tramadol HCl (Ultram) 50 mg DAILY PRN PO PAIN; Start 04/04/17 at 06:00 Pantoprazole 40 mg 40 mg DAILY@06 PO Last administered on 04/06/17 06:45; Admin Dose 40 MG; Start 04/05/17 at 06:00 Levofloxacin/ Dextrose (Levaquin 750 Mg/ D5W 150 ml (Pmx)) 150 ml @ 100 mls/hr Q48H IVPB Last administered on 04/04/17 09:34; Admin Dose 100 MLS/HR; Start 04/04/17 at 09:00 Al Hydrox/Mg Hydrox/Simethicone (Mag-Al Plus) 30 ml Q6H PRN PO GASTROINTESTINAL UPSET Last administered on 04/05/17 01:01; Admin Dose 30 ML; Start 04/05/17 at 00:53 Simethicone (Mylicon) 80 mg Q6H PRN PO DISTENSION/GAS/BLOATING Last administered on 04/05/17 01:01; Admin Dose 80 MG; Start 04/05/17 at 00:53 Methadone HCl (Methadone) 30 mg TID PO Last administered on 04/06/17 07:06; Admin Dose 30 MG; Start 04/06/17 at 07:00 Methylprednisolone Sodium Succinate 60 mg 60 mg Q8 IV Last administered on 06:45; Admin Dose 60 MG; Start 04/05/17 at 22:00 Sodium Chloride (1/2 NS) 1,000 ml @ 40 mls/hr Q24H IV Last administered on 21:57; Admin Dose 40 MLS/HR; Start 04/05/17 at 18:30 Insulin Glargine (Lantus) 13 unit DAILY@20 SC ; Start 04/06/17 at 20:00 Diagnostic Test (Pha) (Accu-Chek) 1 ea 02 XX ; Start 04/07/17 at 02:00 Miscellaneous Information 1 ea NOTE XX ; Start 04/06/17 at 10:30 Glucose (Glutose) 15 gm Q15M PRN PO DECREASED GLUCOSE; Start 04/06/17 at 10:30 Glucose (Glutose) 22.5 gm Q15M PRN PO DECREASED GLUCOSE; Start 04/06/17 at 10: 30 Dextrose (D50w Syringe) 25 ml Q15M PRN IV DECREASED GLUCOSE; Start 04/06/17 at 10:30 Dextrose (D50w Syringe) 50 ml Q15M PRN IV DECREASED GLUCOSE; Start 04/06/17 at 10:30 Glucagon (Glucagen) 1 mg Q15M PRN IM DECREASED GLUCOSE; Start 04/06/17 at 10: 30 Glucose (Glutose) 15 gm Q15M PRN BUCCAL DECREASED GLUCOSE; Start 04/06/17 at 10:30 GERA WATKINS Apr 06, 2017 11:00
[2017-04-06] MEDS: LEVOFLOXACIN 750MG/D5W (PMX) 150 ML IVPB SCH (11:25)
[2017-04-06] MEDS: MOMETASONE 0.24 GM INHALER INH SCH ×3 (11:31→21:39)
--- NOTE | 2017-04-06 12:29 | PN ---
Date/Time of Note Date/Time of Note DATE: 04/06/17 TIME: 12:26 Assessment/Plan VTE Prophylaxis VTE Prophylaxis Intervention: SCD's Lines/Catheters IV Catheter Type (from Nrs): Saline Lock Urinary Cath still in place: Yes Reason Cath still needed: urinary retention Assessment/Plan Chief Complaint/Hosp Course Assessment/Plan #. SOB secondary to COPD exacerbation versus CHF exacerbation - Will continue on bronchodilators, O2, Steroids, and levaquin. - Solu-Medrol -states much improved breathing after increase in steroids -more likely copd ex at this point as cardiology does not see significant cardiac dysfunction #hyperK -resolving -s/p calcium and kayexalate -2/2 high spironolactone dose and holding lasix -holding lasix and spironolactone #uti -on levaquin for COPD ex, will treat as well #. acute on chronic kidney disease - Renal US shows bilateral kidney parenchyma slightly increased echogenicity which may be secondary to medical renal disease. No hydronephrosis seen. - Nephrology consult placed -improved with mild hydration -watters placed #. COPD - We will resume all medications, in addition treat as per #1. #. compensated CHF - BNP is 500 - Will order an echocardiogram to assess heart function. -cardiology consulted as medication will need reconciliation, holding spironolactone due to hyperK -lasix held due to LORI -cardiology to remanage patient's medications as patient's current issues may be due more to copd than chf. #. hepatitis C - Continue monitoring #. history of heroin use - Currently on methadone - She takes approximately methadone 130 mg once daily, will have to adjust for renal dose for now, will resume regular dose once regular function/hyperK resolves - Will continue home dose when renal function and K normalize #. Disposition - Continue monitoring on Telemetry, will need a few days of IV steroids for copd ex as her resp status is mod/severely depressed Problems: Subjective 24 Hr Interval Summary Free Text/Dictation breathing better today Exam/Review of Systems Vital Signs Vitals Vital Signs Date Time Temp Pulse Resp B/P Pulse Ox O2 Delivery O2 Flow Rate FiO2 04/06/17 12:00 91 04/06/17 07:34 20 95 Nasal Cannula 4.0 04/06/17 00:58 98.5 110/110 04/04/17 09:19 Intake and Output 04/05/17 04/05/17 04/06/17 15:00 23:00 07:00 Intake Total 800 ml Output Total 600 ml Balance 200 ml Exam General: in no acute respiratory distress HEENT: Atraumatic, normocephalic. The pupils are equal, round and reactive. Extraocular motor are intact Neck: Supple with full range of motion. Chest: Right anterior chest tender to palpation Lungs: Poor air movement bilaterally, mild expiratory rales, no wheezing Heart: Normal S1-S2, Regular rhythm and rate. No murmurs appreciated Abdomen: Soft , nontender, nondistended , bowel sounds are present. No guarding no rebound tenderness , Extremities: Normal to inspection, no edema no cyanosis Neurologic: Normal mental status, speech normal, cranial nerves II through XII are intact, motor and sensory are intact, no focal weakness Results Result Diagram: 04/06/17 0702 04/06/17 0702 Results 24 hrs Laboratory Tests Test 04/05/17 15:15 04/05/17 17:30 04/05/17 22:26 04/06/17 07:02 Urine Color YELLOW STRAW Urine Clarity CLEAR CLEAR Urine pH 6.0 7.0 Urine Specific [place] 1.013 1.011 Urine Ketones NEGATIVE NEGATIVE Urine Nitrite NEGATIVE NEGATIVE Urine Bilirubin NEGATIVE NEGATIVE Urine Urobilinogen NEGATIVE NEGATIVE Urine Leukocyte Esterase NEGATIVE NEGATIVE Urine Hemoglobin NEGATIVE 1+ H Urine Random Creatinine 65.54 42.71 Urine Random Sodium < 13 L 21 L Urine Random Potassium 62.2 Urine Glucose NEGATIVE NEGATIVE Urine Total Protein NEGATIVE NEGATIVE Urine Microscopic RBC 12 H Urine Microscopic WBC 6 H Urine Bacteria FEW A Urine Eosinophils % 0.0 Urine Osmolality 343 Urine Protein/Creatinine Ratio 0.35 Potassium Level 5.6 H 5.3 H White Blood Count 16.4 #H Red Blood Count 4.04 L Hemoglobin 13.2 Hematocrit 39.9 Mean Corpuscular Volume 98.8 Mean Corpuscular Hemoglobin 32.7 Mean Corpuscular Hemoglobin Concent 33.1 Red Cell Distribution Width 13.3 Platelet Count 107 #L Mean Platelet Volume 11.9 H Neutrophils % 90.9 H Lymphocytes % 4.9 L Monocytes % 3.0 Eosinophils % 0.0 Basophils % 0.2 Nucleated Red Blood Cells % 0.0 Neutrophils # 14.9 H Lymphocytes # 0.8 Monocytes # 0.5 Eosinophils # 0.0 Basophils # 0.0 Nucleated Red Blood Cells # 0.0 Sodium Level 131 L Chloride Level 92 L Carbon Dioxide Level 25 Anion Gap 19 H Blood Urea Nitrogen 85 H Creatinine 1.71 H Glucose Level 477 *H Calcium Level 9.0 Phosphorus Level 4.1 Magnesium Level 2.5 Total Bilirubin 0.0 L Direct Bilirubin 0.00 Indirect Bilirubin 0.0 Aspartate Amino Transf (AST/SGOT) 70 H Alanine Aminotransferase (ALT/SGPT) 58 Alkaline Phosphatase 97 Total Protein 6.4 Albumin 3.4 Globulin 3.00 Albumin/Globulin Ratio 1.13 Medications Medications Current Medications Ondansetron HCl (Zofran Inj) 4 mg Q6H PRN IV NAUSEA AND/OR VOMITING; Start at 22:30 Acetaminophen (Tylenol Tab) 650 mg Q6H PRN PO PAIN LEVEL 1-3 OR FEVER; Start 04/03/17 at 22:30 Docusate Sodium (Colace) 100 mg Q12H PRN PO CONSTIPATION; Start 04/03/17 at 22 :30 Bisacodyl (Dulcolax) 5 mg DAILY PRN PO CONSTIPATION Last administered on 00:15; Admin Dose 5 MG; Start 04/03/17 at 22:30 Aspirin (Halfprin) 81 mg DAILY PO Last administered on 04/06/17 09:23; Admin Dose 81 MG; Start 04/04/17 at 09:00 Spironolactone (Aldactone) 100 mg BID PO Last administered on 04/05/17 08:52 ; Admin Dose 100 MG; Start 04/04/17 at 09:00; Status Future Hold Tramadol HCl (Ultram) 50 mg DAILY PRN PO PAIN; Start 04/04/17 at 06:00 Pantoprazole 40 mg 40 mg DAILY@06 PO Last administered on 04/06/17 06:45; Admin Dose 40 MG; Start 04/05/17 at 06:00 Levofloxacin/ Dextrose (Levaquin 750 Mg/ D5W 150 ml (Pmx)) 150 ml @ 100 mls/hr Q48H IVPB Last administered on 04/06/17 11:25; Admin Dose 100 MLS/HR; Start 04/04/17 at 09:00 Al Hydrox/Mg Hydrox/Simethicone (Mag-Al Plus) 30 ml Q6H PRN PO GASTROINTESTINAL UPSET Last administered on 04/05/17 01:01; Admin Dose 30 ML; Start 04/05/17 at 00:53 Simethicone (Mylicon) 80 mg Q6H PRN PO DISTENSION/GAS/BLOATING Last administered on 04/05/17 01:01; Admin Dose 80 MG; Start 04/05/17 at 00:53 Methadone HCl (Methadone) 30 mg TID PO Last administered on 04/06/17 07:06; Admin Dose 30 MG; Start 04/06/17 at 07:00 Methylprednisolone Sodium Succinate 60 mg 60 mg Q8 IV Last administered on 06:45; Admin Dose 60 MG; Start 04/05/17 at 22:00 Sodium Chloride (1/2 NS) 1,000 ml @ 40 mls/hr Q24H IV Last administered on 21:57; Admin Dose 40 MLS/HR; Start 04/05/17 at 18:30 Insulin Glargine (Lantus) 13 unit DAILY@20 SC ; Start 04/06/17 at 20:00 Diagnostic Test (Pha) (Accu-Chek) 1 ea 02 XX ; Start 04/07/17 at 02:00 Miscellaneous Information 1 ea NOTE XX ; Start 04/06/17 at 10:30 Glucose (Glutose) 15 gm Q15M PRN PO DECREASED GLUCOSE; Start 04/06/17 at 10:30 Glucose (Glutose) 22.5 gm Q15M PRN PO DECREASED GLUCOSE; Start 04/06/17 at 10: 30 Dextrose (D50w Syringe) 25 ml Q15M PRN IV DECREASED GLUCOSE; Start 04/06/17 at 10:30 Dextrose (D50w Syringe) 50 ml Q15M PRN IV DECREASED GLUCOSE; Start 04/06/17 at 10:30 Glucagon (Glucagen) 1 mg Q15M PRN IM DECREASED GLUCOSE; Start 04/06/17 at 10: 30 Glucose (Glutose) 15 gm Q15M PRN BUCCAL DECREASED GLUCOSE; Start 04/06/17 at 10:30 SUMEET VELEZ Apr 06, 2017 12:29
[2017-04-06] MEDS ORDERED: NA POLYST SULFON 15 GM/60 ML BTL PO ONE (12:30)
[2017-04-06] MEDS: INSULIN ASPART [NOVOLOG] 3 ML PEN SC SCH ×5 (12:44→21:00)
[2017-04-06] MEDS: SOD CHLORIDE 0.45% 1,000 ML IV SCH (18:30)
[2017-04-06] MEDS ORDERED: predniSONE 20 MG TAB PO ONE (20:30)
[2017-04-06] MEDS ORDERED: predniSONE 50 MG TAB PO SCH (21:00)
[2017-04-06] MEDS: INSULIN GLARGINE [LANtus] 3 ML PEN SC SCH (21:41)
[2017-04-07] VITALS (11 sets, daily range): BP systolic 11–116; BP diastolic 56–71; PULSE 72–165; RESP 18–22
[2017-04-07] MEDS ORDERED: ACCU-CHEK XX SCH (02:00)
[2017-04-07] MEDS: ACCU-CHEK XX SCH (02:00)
[2017-04-07] MEDS: PANTOPRAZOLE (EC) 40 MG TAB PO SCH (06:12)
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
[2017-04-07] MEDS: INSULIN ASPART [NOVOLOG] 3 ML PEN SC SCH ×6 (08:00→22:16)
[2017-04-07] MEDS: METHADONE 10 MG TAB PO SCH ×3 (08:09→22:10)
[2017-04-07] MEDS: ASPIRIN (EC) 81 MG TAB PO SCH (08:09)
[2017-04-07] MEDS: MOMETASONE 0.24 GM INHALER INH SCH ×2 (08:10→22:07)
[2017-04-07] MEDS: ALBUTEROL/IPRATROPIUM (NEB) 3 ML AMP HHN SCH ×3 (08:47→20:00)
[2017-04-07 08:49] LABS: BASOPHILS % 0.1 % (0.0-2.0); HEMATOCRIT 39.8 % (37.0-47.0); HEMOGLOBIN 13.1 g/dl (12.0-16.0); LYMPHOCYTES # 1.7 10^3/ul (0.8-2.9); LYMPHOCYTES % 11.6 % (15.0-51.0); MEAN CORPUSCULAR HEMOGLOBIN 32.8 pg (29.0-33.0); MEAN CORPUSCULAR HGB CONC 32.9 g/dl (32.0-37.0); MEAN CORPUSCULAR VOLUME 99.7 fl (82.0-101.0); MEAN PLATELET VOLUME 10.8 fl (7.4-10.4); MONOCYTE # 1.3 10^3/ul (0.3-0.9); MONOCYTES % 8.8 % (0.0-11.0); NEUTROPHIL # 11.1 10^3/ul (1.6-7.5); NEUTROPHILS % 78.2 % (39.0-77.0); PLATELET COUNT 145 10^3/UL (140-415); RED BLOOD COUNT 3.99 10^6/ul (4.20-5.40); RED CELL DISTRIBUTION WIDTH 13.5 % (11.5-14.5); WHITE BLOOD COUNT 14.2 10^3/ul (4.8-10.8)
[2017-04-07 09:22] LABS: ALBUMIN 2.9 g/dl (3.3-4.9); CALCIUM 9.2 mg/dl (8.4-10.2); CREATININE 1.37 mg/dl (0.44-1.00); MAGNESIUM 2.3 mg/dl (1.7-2.5); PHOSPHORUS 4.9 mg/dl (2.5-4.9); POTASSIUM 4.6 mmol/L (3.5-5.1)
[2017-04-07 10:09] LABS: AADO2 Arterial 39.1 mmHg (7.0-24.0); Allen Test ACCEPTAB; Arterial Base Excess 2.3 mmol/L (-3.0-3); Arterial COHb 0.2 % (0.0-3.0); Arterial Fraction of Oxyhgb 89.7 % (93.0-99.0); Arterial HCO3 27.6 mmol/L (22.0-26.0); Arterial MetHb 0.2 % (0.0-1.5); Arterial Total Hemglobin 14.3 g/dl (12.0-18.0); MODE ROOM AIR
--- NOTE | 2017-04-07 10:09 | CONS ---
Date/Time of Note Date/Time of Note DATE: 04/07/17 TIME: 10:07 Assessment/Plan Assessment/Plan Chief Complaint/Hosp Course 1. Acute on chronic kidney disease. Renal US shows bilateral kidney parenchyma slightly increased echogenicity which may be secondary to medical renal disease. No hydronephrosis seen. 2. SOB secondary to COPD exacerbation versus CHF exacerbation 3. COPD 4. Hs of CHF 5. HX hepatitis C 6. history of heroin use Problems: Additional Assessment/Plan 1. Keep watters 2. Optimization kidney function, CR is better Consultation Date/Type/Reason Admit Date/Time Apr 03, 2017 at 19:47 Initial Consult Date 04/05/17 Type of Consultation: Nephrology Exam/Review of Systems Vital Signs Vitals Vital Signs Date Time Temp Pulse Resp B/P Pulse Ox O2 Delivery O2 Flow Rate FiO2 04/07/17 08:47 79 20 94 Nasal Cannula 4.0 04/07/17 07:51 98.3 04/04/17 09:19 Intake and Output 04/06/17 04/06/17 04/07/17 15:00 23:00 07:00 Intake Total 2450 ml 800 ml Output Total 3000 ml 1825 ml Balance -550 ml -1025 ml Exam Constitutional: alert, oriented Respiratory: diminished breath sounds Cardiovascular: regular rate and rhythm Gastrointestinal: soft Genitourinary - Female: other (janene) Results Result Diagram: 04/07/17 0808 04/07/17 0808 Results 24 hrs Laboratory Tests Test 04/06/17 12:36 04/06/17 17:04 04/06/17 21:30 04/07/17 08:08 Bedside Glucose 434 *H 150 145 White Blood Count 14.2 H Red Blood Count 3.99 L Hemoglobin 13.1 Hematocrit 39.8 Mean Corpuscular Volume 99.7 Mean Corpuscular Hemoglobin 32.8 Mean Corpuscular Hemoglobin Concent 32.9 Red Cell Distribution Width 13.5 Platelet Count 145 # Mean Platelet Volume 10.8 H Neutrophils % 78.2 H Lymphocytes % 11.6 L Monocytes % 8.8 Eosinophils % 0.0 Basophils % 0.1 Nucleated Red Blood Cells % 0.0 Neutrophils # 11.1 H Lymphocytes # 1.7 Monocytes # 1.3 H Eosinophils # 0.0 Basophils # 0.0 Nucleated Red Blood Cells # 0.0 Sodium Level 136 Potassium Level 4.6 Chloride Level 96 L Carbon Dioxide Level 33 H Anion Gap 12 # Blood Urea Nitrogen 72 H Creatinine 1.37 H Glucose Level 90 # Calcium Level 9.2 Phosphorus Level 4.9 Magnesium Level 2.3 Albumin 2.9 L Test 04/07/17 08:11 Bedside Glucose 93 Medications Medications Current Medications Ondansetron HCl (Zofran Inj) 4 mg Q6H PRN IV NAUSEA AND/OR VOMITING; Start at 22:30 Acetaminophen (Tylenol Tab) 650 mg Q6H PRN PO PAIN LEVEL 1-3 OR FEVER; Start 04/03/17 at 22:30 Docusate Sodium (Colace) 100 mg Q12H PRN PO CONSTIPATION; Start 04/03/17 at 22 :30 Bisacodyl (Dulcolax) 5 mg DAILY PRN PO CONSTIPATION Last administered on 00:15; Admin Dose 5 MG; Start 04/03/17 at 22:30 Aspirin (Halfprin) 81 mg DAILY PO Last administered on 04/07/17 08:09; Admin Dose 81 MG; Start 04/04/17 at 09:00 Spironolactone (Aldactone) 100 mg BID PO Last administered on 04/05/17 08:52 ; Admin Dose 100 MG; Start 04/04/17 at 09:00; Status Future Hold Tramadol HCl (Ultram) 50 mg DAILY PRN PO PAIN; Start 04/04/17 at 06:00 Pantoprazole 40 mg 40 mg DAILY@06 PO Last administered on 04/07/17 06:12; Admin Dose 40 MG; Start 04/05/17 at 06:00 Levofloxacin/ Dextrose (Levaquin 750 Mg/ D5W 150 ml (Pmx)) 150 ml @ 100 mls/hr Q48H IVPB Last administered on 04/06/17 11:25; Admin Dose 100 MLS/HR; Start 04/04/17 at 09:00 Al Hydrox/Mg Hydrox/Simethicone (Mag-Al Plus) 30 ml Q6H PRN PO GASTROINTESTINAL UPSET Last administered on 04/05/17 01:01; Admin Dose 30 ML; Start 04/05/17 at 00:53 Simethicone (Mylicon) 80 mg Q6H PRN PO DISTENSION/GAS/BLOATING Last administered on 04/05/17 01:01; Admin Dose 80 MG; Start 04/05/17 at 00:53 Methadone HCl 30 mg 30 mg TID PO Last administered on 04/07/17 08:09; Admin Dose 30 MG; Start 04/06/17 at 07:00 Sodium Chloride (1/2 NS) 1,000 ml @ 40 mls/hr Q24H IV Last administered on 21:57; Admin Dose 40 MLS/HR; Start 04/05/17 at 18:30 Insulin Glargine (Lantus) 13 unit DAILY@20 SC Last administered on 04/06/17 21:41; Admin Dose 13 UNIT; Start 04/06/17 at 20:00 Diagnostic Test (Pha) (Accu-Chek) 1 ea 02 XX ; Start 04/07/17 at 02:00 Miscellaneous Information 1 ea NOTE XX ; Start 04/06/17 at 10:30 Glucose (Glutose) 15 gm Q15M PRN PO DECREASED GLUCOSE; Start 04/06/17 at 10:30 Glucose (Glutose) 22.5 gm Q15M PRN PO DECREASED GLUCOSE; Start 04/06/17 at 10: 30 Dextrose (D50w Syringe) 25 ml Q15M PRN IV DECREASED GLUCOSE; Start 04/06/17 at 10:30 Dextrose (D50w Syringe) 50 ml Q15M PRN IV DECREASED GLUCOSE; Start 04/06/17 at 10:30 Glucagon (Glucagen) 1 mg Q15M PRN IM DECREASED GLUCOSE; Start 04/06/17 at 10: 30 Glucose (Glutose) 15 gm Q15M PRN BUCCAL DECREASED GLUCOSE; Start 04/06/17 at 10:30 Nystatin (Nystatin Susp) 5 ml QID PO ; Start 04/07/17 at 13:00; Stop 04/14/17 at 12:59 GERA WATKINS Apr 07, 2017 10:09
--- NOTE | 2017-04-07 11:20 | CONS ---
Date/Time of Note Date/Time of Note DATE: 04/07/17 TIME: 11:13 Assessment/Plan Assessment/Plan Chief Complaint/Hosp Course Dyspnea: No CHF by exam, likely from COPD +/- from LVOT obstruction. Now improved LVOT obstruction: Poorly seen on echo but gradient up to 30mmHg with hyperdynamic EF. Likely worse due to dehydration. Now softer murmur after hydration Hyperkalemia: due to renal failure and aldactone. Resolved Acute renal failure: likely from dehydration. Continues to improve Chronic diastolic heart failure: EF hyperdynamic. Still dry H/o endocarditis Prior heroin abuse -if BP tolerates, can consider diltiazem 30mg BID -would hold lasix and aldactone on discharge -should have outpt cardiology -IVF -COPD management per primary -ok for d/c from my perspective Problems: Consultation Date/Type/Reason Admit Date/Time Apr 03, 2017 at 19:47 Initial Consult Date 04/05/17 Type of Consultation: Cardiology 24 HR Interval Summary Free Text/Dictation 5 beats of NSVT overnight. Lytes ok. SOB improved. Exam/Review of Systems Vital Signs Vitals Vital Signs Date Time Temp Pulse Resp B/P Pulse Ox O2 Delivery O2 Flow Rate FiO2 04/07/17 08:47 79 20 94 Nasal Cannula 4.0 04/07/17 07:51 98.3 04/04/17 09:19 Intake and Output 04/06/17 04/06/17 04/07/17 14:59 22:59 06:59 Intake Total 2450 ml 800 ml Output Total 3000 ml 1825 ml Balance -550 ml -1025 ml Exam Constitutional: alert, oriented Psych: nl mood/affect, no complaints Head: atraumatic, normocephalic Neck: supple, No jvd Respiratory: clear to auscultation, No crackles/rales Cardiovascular: regular rate and rhythm, systolic murmur (2/6 BRIAN, softer today ), No edema Gastrointestinal: non-tender, soft, No distended Neurological: nl mental status, nl speech Results Result Diagram: 04/07/17 0808 04/07/17 0808 Results 24 hrs Laboratory Tests Test 04/06/17 12:36 04/06/17 17:04 04/06/17 21:30 04/07/17 08:08 Bedside Glucose 434 *H 150 145 White Blood Count 14.2 H Red Blood Count 3.99 L Hemoglobin 13.1 Hematocrit 39.8 Mean Corpuscular Volume 99.7 Mean Corpuscular Hemoglobin 32.8 Mean Corpuscular Hemoglobin Concent 32.9 Red Cell Distribution Width 13.5 Platelet Count 145 # Mean Platelet Volume 10.8 H Neutrophils % 78.2 H Lymphocytes % 11.6 L Monocytes % 8.8 Eosinophils % 0.0 Basophils % 0.1 Nucleated Red Blood Cells % 0.0 Neutrophils # 11.1 H Lymphocytes # 1.7 Monocytes # 1.3 H Eosinophils # 0.0 Basophils # 0.0 Nucleated Red Blood Cells # 0.0 Sodium Level 136 Potassium Level 4.6 Chloride Level 96 L Carbon Dioxide Level 33 H Anion Gap 12 # Blood Urea Nitrogen 72 H Creatinine 1.37 H Glucose Level 90 # Calcium Level 9.2 Phosphorus Level 4.9 Magnesium Level 2.3 Albumin 2.9 L Test 04/07/17 08:11 04/07/17 09:48 Bedside Glucose 93 Blood Gas Specimen Source Blood arterial Arterial Blood Date Drawn 04/07/2017 10:00:06 AM Arterial Blood pH (Temp corrected) 7.406 Arterial Blood pCO2 (Temp correct) 44.9 Arterial Blood pO2 (Temp corrected) 56.9 L Arterial Blood HCO3 27.6 H Arterial Blood Base Excess 2.3 Arterial Blood Oxygen Saturation 90.1 L Joe Test ACCEPTAB Arterial Blood Gas Puncture Site Left Radial Arterial Blood Carboxyhemoglobin 0.2 Arterial Blood Methemoglobin 0.2 Blood Gas A-a O2 Differential 39.1 H Oxyhemoglobin Percent 89.7 L Total Hemoglobin 14.3 Blood Gas Temperature 37.0 Blood Gas Modality ROOM AIR FiO2 21.0 Blood Gas Notified Whom JLD Blood Gas Notified Time 04/07/2017 10:09:45 AM Medications Medications Current Medications Ondansetron HCl (Zofran Inj) 4 mg Q6H PRN IV NAUSEA AND/OR VOMITING; Start at 22:30 Acetaminophen (Tylenol Tab) 650 mg Q6H PRN PO PAIN LEVEL 1-3 OR FEVER; Start 04/03/17 at 22:30 Docusate Sodium (Colace) 100 mg Q12H PRN PO CONSTIPATION; Start 04/03/17 at 22 :30 Bisacodyl (Dulcolax) 5 mg DAILY PRN PO CONSTIPATION Last administered on 00:15; Admin Dose 5 MG; Start 04/03/17 at 22:30 Aspirin (Halfprin) 81 mg DAILY PO Last administered on 04/07/17 08:09; Admin Dose 81 MG; Start 04/04/17 at 09:00 Spironolactone (Aldactone) 100 mg BID PO Last administered on 04/05/17 08:52 ; Admin Dose 100 MG; Start 04/04/17 at 09:00; Status Future Hold Tramadol HCl (Ultram) 50 mg DAILY PRN PO PAIN; Start 04/04/17 at 06:00 Pantoprazole 40 mg 40 mg DAILY@06 PO Last administered on 04/07/17 06:12; Admin Dose 40 MG; Start 04/05/17 at 06:00 Levofloxacin/ Dextrose (Levaquin 750 Mg/ D5W 150 ml (Pmx)) 150 ml @ 100 mls/hr Q48H IVPB Last administered on 04/06/17 11:25; Admin Dose 100 MLS/HR; Start 04/04/17 at 09:00 Al Hydrox/Mg Hydrox/Simethicone (Mag-Al Plus) 30 ml Q6H PRN PO GASTROINTESTINAL UPSET Last administered on 04/05/17 01:01; Admin Dose 30 ML; Start 04/05/17 at 00:53 Simethicone (Mylicon) 80 mg Q6H PRN PO DISTENSION/GAS/BLOATING Last administered on 04/05/17 01:01; Admin Dose 80 MG; Start 04/05/17 at 00:53 Methadone HCl 30 mg 30 mg TID PO Last administered on 04/07/17 08:09; Admin Dose 30 MG; Start 04/06/17 at 07:00 Sodium Chloride (1/2 NS) 1,000 ml @ 40 mls/hr Q24H IV Last administered on 21:57; Admin Dose 40 MLS/HR; Start 04/05/17 at 18:30 Insulin Glargine (Lantus) 13 unit DAILY@20 SC Last administered on 04/06/17 21:41; Admin Dose 13 UNIT; Start 04/06/17 at 20:00 Diagnostic Test (Pha) (Accu-Chek) 1 ea 02 XX ; Start 04/07/17 at 02:00 Miscellaneous Information 1 ea NOTE XX ; Start 04/06/17 at 10:30 Glucose (Glutose) 15 gm Q15M PRN PO DECREASED GLUCOSE; Start 04/06/17 at 10:30 Glucose (Glutose) 22.5 gm Q15M PRN PO DECREASED GLUCOSE; Start 04/06/17 at 10: 30 Dextrose (D50w Syringe) 25 ml Q15M PRN IV DECREASED GLUCOSE; Start 04/06/17 at 10:30 Dextrose (D50w Syringe) 50 ml Q15M PRN IV DECREASED GLUCOSE; Start 04/06/17 at 10:30 Glucagon (Glucagen) 1 mg Q15M PRN IM DECREASED GLUCOSE; Start 04/06/17 at 10: 30 Glucose (Glutose) 15 gm Q15M PRN BUCCAL DECREASED GLUCOSE; Start 04/06/17 at 10:30 Nystatin (Nystatin Susp) 5 ml QID PO ; Start 04/07/17 at 13:00; Stop 04/14/17 at 12:59 CUAUHTEMOC CORRALES Apr 07, 2017 11:20
[2017-04-07] MEDS: NYSTATIN SUSP 5 ML CUP PO SCH ×3 (12:41→22:10)
--- NOTE | 2017-04-07 15:10 | PN ---
Date/Time of Note Date/Time of Note DATE: 04/07/17 TIME: 15:05 Assessment/Plan VTE Prophylaxis VTE Prophylaxis Intervention: SCD's Lines/Catheters IV Catheter Type (from Nrs): Saline Lock Urinary Cath still in place: Yes Reason Cath still needed: urinary retention Assessment/Plan Chief Complaint/Hosp Course Assessment/Plan #. SOB secondary to COPD exacerbation versus CHF exacerbation - Will continue on bronchodilators, O2, Steroids, and levaquin. - prednisone taper, 80mg yesterday, 50 today, 40 tomorrow and slow taper after -states much improved breathing after increase in steroids -more likely copd ex at this point as cardiology does not see significant cardiac dysfunction -appears patient unable to fill inhaled steroid such as Advair outpatient and mistakenly treated for worsening CHF instead. Will need consistent inhaled steroid therapy for this patient with what appears to be severe COPD #hyperK -resolving -s/p calcium and kayexalate -2/2 high spironolactone dose and holding lasix -holding lasix and spironolactone #uti -on levaquin for COPD ex, will treat as well #. acute on chronic kidney disease - Renal US shows bilateral kidney parenchyma slightly increased echogenicity which may be secondary to medical renal disease. No hydronephrosis seen. - Nephrology consult placed -improved with mild hydration -watters placed #. COPD - We will resume all medications, in addition treat as per #1. #. compensated CHF - BNP is 500, CHF may be due to patient's hyperdynamic heart -cardiology to remanage patient's medications as patient's current issues may be due more to copd than chf. -no lasix or spironolactone on DC likely #. hepatitis C - Continue monitoring #. history of heroin use - Currently on methadone - She takes approximately methadone 130 mg once daily, will have to adjust for renal dose for now, will resume regular dose once regular function/hyperK resolves - Will continue home dose when renal function and K normalize #. Disposition - Continue monitoring on Telemetry, -prednisone taper -high bounce back risk as patient is severe copd unable to fill simple inhaled steroid, will speak to CM about making sure an inhaled steroid is covered before DC. Problems: Subjective 24 Hr Interval Summary Free Text/Dictation feels better Exam/Review of Systems Vital Signs Vitals Vital Signs Date Time Temp Pulse Resp B/P Pulse Ox O2 Delivery O2 Flow Rate FiO2 04/07/17 13:36 96 20 96 Nasal Cannula 4.0 04/07/17 11:58 97.6 94/70 04/04/17 09:19 Intake and Output 04/06/17 04/06/17 04/07/17 15:00 23:00 07:00 Intake Total 2450 ml 800 ml Output Total 3000 ml 1825 ml Balance -550 ml -1025 ml Exam General: in no acute respiratory distress HEENT: Atraumatic, normocephalic. The pupils are equal, round and reactive. Extraocular motor are intact Neck: Supple with full range of motion. Chest: Right anterior chest tender to palpation Lungs: Poor air movement bilaterally, mild expiratory rales, no wheezing Heart: Normal S1-S2, Regular rhythm and rate. No murmurs appreciated Abdomen: Soft , nontender, nondistended , bowel sounds are present. No guarding no rebound tenderness , Extremities: Normal to inspection, no edema no cyanosis Neurologic: Normal mental status, speech normal, cranial nerves II through XII are intact, motor and sensory are intact, no focal weakness Results Result Diagram: 04/07/17 0808 04/07/17 0808 Results 24 hrs Laboratory Tests Test 04/06/17 17:04 04/06/17 21:30 04/07/17 08:08 04/07/17 08:11 Bedside Glucose 150 145 93 White Blood Count 14.2 H Red Blood Count 3.99 L Hemoglobin 13.1 Hematocrit 39.8 Mean Corpuscular Volume 99.7 Mean Corpuscular Hemoglobin 32.8 Mean Corpuscular Hemoglobin Concent 32.9 Red Cell Distribution Width 13.5 Platelet Count 145 # Mean Platelet Volume 10.8 H Neutrophils % 78.2 H Lymphocytes % 11.6 L Monocytes % 8.8 Eosinophils % 0.0 Basophils % 0.1 Nucleated Red Blood Cells % 0.0 Neutrophils # 11.1 H Lymphocytes # 1.7 Monocytes # 1.3 H Eosinophils # 0.0 Basophils # 0.0 Nucleated Red Blood Cells # 0.0 Sodium Level 136 Potassium Level 4.6 Chloride Level 96 L Carbon Dioxide Level 33 H Anion Gap 12 # Blood Urea Nitrogen 72 H Creatinine 1.37 H Glucose Level 90 # Calcium Level 9.2 Phosphorus Level 4.9 Magnesium Level 2.3 Albumin 2.9 L Test 04/07/17 09:48 04/07/17 11:55 Blood Gas Specimen Source Blood arterial Arterial Blood Date Drawn 04/07/2017 10:00:06 AM Arterial Blood pH (Temp corrected) 7.406 Arterial Blood pCO2 (Temp correct) 44.9 Arterial Blood pO2 (Temp corrected) 56.9 L Arterial Blood HCO3 27.6 H Arterial Blood Base Excess 2.3 Arterial Blood Oxygen Saturation 90.1 L Joe Test ACCEPTAB Arterial Blood Gas Puncture Site Left Radial Arterial Blood Carboxyhemoglobin 0.2 Arterial Blood Methemoglobin 0.2 Blood Gas A-a O2 Differential 39.1 H Oxyhemoglobin Percent 89.7 L Total Hemoglobin 14.3 Blood Gas Temperature 37.0 Blood Gas Modality ROOM AIR FiO2 21.0 Blood Gas Notified Whom JLD Blood Gas Notified Time 04/07/2017 10:09:45 AM Bedside Glucose 113 Medications Medications Current Medications Ondansetron HCl (Zofran Inj) 4 mg Q6H PRN IV NAUSEA AND/OR VOMITING; Start at 22:30 Acetaminophen (Tylenol Tab) 650 mg Q6H PRN PO PAIN LEVEL 1-3 OR FEVER; Start 04/03/17 at 22:30 Docusate Sodium (Colace) 100 mg Q12H PRN PO CONSTIPATION; Start 04/03/17 at 22 :30 Bisacodyl (Dulcolax) 5 mg DAILY PRN PO CONSTIPATION Last administered on 00:15; Admin Dose 5 MG; Start 04/03/17 at 22:30 Aspirin (Halfprin) 81 mg DAILY PO Last administered on 04/07/17 08:09; Admin Dose 81 MG; Start 04/04/17 at 09:00 Spironolactone (Aldactone) 100 mg BID PO Last administered on 04/05/17 08:52 ; Admin Dose 100 MG; Start 04/04/17 at 09:00; Status Future Hold Tramadol HCl (Ultram) 50 mg DAILY PRN PO PAIN; Start 04/04/17 at 06:00 Pantoprazole 40 mg 40 mg DAILY@06 PO Last administered on 04/07/17 06:12; Admin Dose 40 MG; Start 04/05/17 at 06:00 Levofloxacin/ Dextrose (Levaquin 750 Mg/ D5W 150 ml (Pmx)) 150 ml @ 100 mls/hr Q48H IVPB Last administered on 04/06/17 11:25; Admin Dose 100 MLS/HR; Start 04/04/17 at 09:00 Al Hydrox/Mg Hydrox/Simethicone (Mag-Al Plus) 30 ml Q6H PRN PO GASTROINTESTINAL UPSET Last administered on 04/05/17 01:01; Admin Dose 30 ML; Start 04/05/17 at 00:53 Simethicone (Mylicon) 80 mg Q6H PRN PO DISTENSION/GAS/BLOATING Last administered on 04/05/17 01:01; Admin Dose 80 MG; Start 04/05/17 at 00:53 Methadone HCl 30 mg 30 mg TID PO Last administered on 04/07/17 12:41; Admin Dose 30 MG; Start 04/06/17 at 07:00 Sodium Chloride (1/2 NS) 1,000 ml @ 40 mls/hr Q24H IV Last administered on 21:57; Admin Dose 40 MLS/HR; Start 04/05/17 at 18:30 Insulin Glargine (Lantus) 13 unit DAILY@20 SC Last administered on 04/06/17 21:41; Admin Dose 13 UNIT; Start 04/06/17 at 20:00 Diagnostic Test (Pha) (Accu-Chek) 1 ea 02 XX ; Start 04/07/17 at 02:00 Miscellaneous Information 1 ea NOTE XX ; Start 04/06/17 at 10:30 Glucose (Glutose) 15 gm Q15M PRN PO DECREASED GLUCOSE; Start 04/06/17 at 10:30 Glucose (Glutose) 22.5 gm Q15M PRN PO DECREASED GLUCOSE; Start 04/06/17 at 10: 30 Dextrose (D50w Syringe) 25 ml Q15M PRN IV DECREASED GLUCOSE; Start 04/06/17 at 10:30 Dextrose (D50w Syringe) 50 ml Q15M PRN IV DECREASED GLUCOSE; Start 04/06/17 at 10:30 Glucagon (Glucagen) 1 mg Q15M PRN IM DECREASED GLUCOSE; Start 04/06/17 at 10: 30 Glucose (Glutose) 15 gm Q15M PRN BUCCAL DECREASED GLUCOSE; Start 04/06/17 at 10:30 Nystatin (Nystatin Susp) 5 ml QID PO Last administered on 04/07/17t 12:41; Admin Dose 5 ML; Start 04/07/17 at 13:00; Stop 04/14/17 at 12:59 Prednisone (Prednisone) 50 mg ONCE ONCE PO ; Start 04/07/17 at 15:30; Stop at 15:31; Status UNV Prednisone (Prednisone) 40 mg DAILY PO ; Start 04/08/17 at 09:00; Status UNV SUMEET VELEZ Apr 07, 2017 15:10
--- NOTE | 2017-04-07 15:28 | RADRPT ---
PROCEDURE: XR Chest. CLINICAL INDICATION: Shortness of breath TECHNIQUE: Single portable view of the chest was obtained COMPARISON: January 27, 2016 FINDINGS: The trachea is midline. The cardiac silhouette and pulmonary vascularity are within normal limits. R ight lower lobe plate-like atelectasis is noted. The lungs are clear. The costophrenic angles are sh ness. There are multiple old right-sided rib fractures. IMPRESSION: 1. Right lower lobe subsegmental atelectasis. No evidence of acute cardiopulmonary disease. 2. Multiple old right-sided rib fractures. RPTAT: AAPP Physician Shane Date Time Electronically viewed and signed by Physician Shane on 04/07/2017 15:27 JL/
[2017-04-07] MEDS ORDERED: predniSONE 50 MG TAB PO ONE (15:30)
[2017-04-07] MEDS: SOD CHLORIDE 0.45% 1,000 ML IV SCH (17:28)
--- NOTE | 2017-04-07 19:44 | RADRPT ---
PROCEDURE: Ultrasound PICC line placement CLINICAL INDICATION: PICC line insertion TECHNIQUE: Ultrasound guidance was provided for PICC line insertion Number of images: 2 COMPARISON: Chest x-ray of 04/07/2017 FINDINGS: Ultrasound guidance was provided for PICC line insertion. PICC line is not seen on ultrasound. Left PICC line tip is near the atriocaval junction on chest x-ray performed approximately 30 minutes kar ier. Follow-up chest x-ray would be useful. IMPRESSION: Ultrasound guidance was provided for PICC line insertion. PICC line is not seen on ultrasound. Left PICC line tip is near the atriocaval junction on chest x-ray performed approximately 30 minutes kar ier. Follow-up chest x-ray would be useful. Please see procedure report . RPTAT: HJES .Rommel Lu MD, Date Time Electronically viewed and signed by .Rommel Lu MD, on 04/07/2017 19:44 .S/
--- NOTE | 2017-04-07 20:22 | RADRPT ---
PROCEDURE: XR Chest. CLINICAL INDICATION: Line placement. TECHNIQUE: Single frontal view of the chest was obtained COMPARISON: Chest radiograph dated January 27, 2016. FINDINGS: Left-sided PICC tip overlying the superior cavoatrial junction. The heart and mediastinum are within normal limits. The lungs are clear. There is no pleural effusion or pneumothorax. Degenerative changes of the spine and shoulder joints are present. There are chronic appearing right -sided rib fractures. IMPRESSION: 1. Left-sided PICC tip overlying the superior cavoatrial junction. No evidence of pneumothorax. 2. No focal consolidations. RPTAT:AAJJ Physician Mouna Date Time Electronically viewed and signed by Physician Mouna on 04/07/2017 20:22 QL/
[2017-04-07] MEDS: INSULIN GLARGINE [LANtus] 3 ML PEN SC SCH (22:16)
[2017-04-08] VITALS (12 sets, daily range): BP systolic 87–105; BP diastolic 50–65; PULSE 89–104; RESP 18–22
[2017-04-08] MEDS: ACCU-CHEK XX SCH (02:00)
[2017-04-08] MEDS ORDERED: INSULIN ASPART [NOVOLOG] 3 ML PEN SC ONE (03:00)
[2017-04-08] MEDS: PANTOPRAZOLE (EC) 40 MG TAB PO SCH (07:05)
[2017-04-08 07:35] LABS: BASOPHILS % 0.2 % (0.0-2.0); EOSINOPHILS % 0.1 % (0.0-7.0); HEMOGLOBIN 13.2 g/dl (12.0-16.0); LYMPHOCYTES # 1.1 10^3/ul (0.8-2.9); LYMPHOCYTES % 11.3 % (15.0-51.0); MEAN CORPUSCULAR HEMOGLOBIN 32.4 pg (29.0-33.0); MEAN CORPUSCULAR HGB CONC 32.2 g/dl (32.0-37.0); MEAN CORPUSCULAR VOLUME 100.5 fl (82.0-101.0); MEAN PLATELET VOLUME 10.8 fl (7.4-10.4); MONOCYTE # 0.6 10^3/ul (0.3-0.9); MONOCYTES % 5.8 % (0.0-11.0); NEUTROPHIL # 7.8 10^3/ul (1.6-7.5); NEUTROPHILS % 80.4 % (39.0-77.0); PLATELET COUNT 152 10^3/UL (140-415); RED BLOOD COUNT 4.08 10^6/ul (4.20-5.40); RED CELL DISTRIBUTION WIDTH 13.7 % (11.5-14.5); WHITE BLOOD COUNT 9.7 10^3/ul (4.8-10.8)
[2017-04-08 08:03] LABS: CALCIUM 9.2 mg/dl (8.4-10.2); CREATININE 1.32 mg/dl (0.44-1.00); MAGNESIUM 2.2 mg/dl (1.7-2.5); PHOSPHORUS 4.9 mg/dl (2.5-4.9); POTASSIUM 4.9 mmol/L (3.5-5.1)
[2017-04-08] MEDS: ALBUTEROL/IPRATROPIUM (NEB) 3 ML AMP HHN SCH ×3 (08:14→19:06)
[2017-04-08] MEDS ORDERED: predniSONE 20 MG TAB PO SCH (09:00)
[2017-04-08] MEDS: LEVOFLOXACIN 750MG/D5W (PMX) 150 ML IVPB SCH (09:52)
[2017-04-08] MEDS: MOMETASONE 0.24 GM INHALER INH SCH ×2 (09:52→20:00)
[2017-04-08] MEDS: ASPIRIN (EC) 81 MG TAB PO SCH (09:53)
[2017-04-08] MEDS: METHADONE 10 MG TAB PO SCH ×3 (09:53→20:48)
[2017-04-08] MEDS: NYSTATIN SUSP 5 ML CUP PO SCH ×4 (09:54→20:48)
[2017-04-08] MEDS: INSULIN ASPART [NOVOLOG] 3 ML PEN SC SCH ×4 (09:54→20:50)
--- NOTE | 2017-04-08 13:19 | CONS ---
Date/Time of Note Date/Time of Note DATE: 04/08/17 TIME: 13:17 Assessment/Plan Assessment/Plan Chief Complaint/Hosp Course Dyspnea: No CHF by exam, likely from COPD +/- from LVOT obstruction. Now improved LVOT obstruction: Poorly seen on echo but gradient up to 30mmHg with hyperdynamic EF. Likely worse due to dehydration. Now no murmur after hydration Hyperkalemia: due to renal failure and aldactone. Resolved Acute renal failure: likely from dehydration. Continues to improve Chronic diastolic heart failure: EF hyperdynamic. Euvolemic though now mild edema H/o endocarditis Prior heroin abuse -on discharge either no lasix or lasix 20mg daily with close outpt f/u -COPD management per primary -ok for d/c from my perspective Problems: Consultation Date/Type/Reason Admit Date/Time Apr 03, 2017 at 19:47 Initial Consult Date 04/05/17 Type of Consultation: Cardiology 24 HR Interval Summary Free Text/Dictation No o/n events. Feels well. Possible d/c today Exam/Review of Systems Vital Signs Vitals Vital Signs Date Time Temp Pulse Resp B/P Pulse Ox O2 Delivery O2 Flow Rate FiO2 04/08/17 13:08 89 04/08/17 12:53 97.7 18 105/63 91 04/08/17 08:16 Nasal Cannula 4.0 04/04/17 09:19 Intake and Output 04/07/17 04/07/17 04/08/17 15:00 23:00 07:00 Intake Total 1100 ml 900 ml Output Total 1200 ml 650 ml Balance -100 ml 250 ml Exam Constitutional: alert, oriented Psych: nl mood/affect, no complaints Head: atraumatic, normocephalic Neck: No jvd Respiratory: clear to auscultation, diminished breath sounds, No crackles/rales Cardiovascular: edema (trace-1+), regular rate and rhythm, No systolic murmur Gastrointestinal: non-tender, soft Neurological: nl mental status, nl speech Results Result Diagram: 04/08/17 0711 04/08/17 0711 Results 24 hrs Laboratory Tests Test 04/07/17 17:11 04/07/17 22:13 04/08/17 01:45 04/08/17 03:05 Bedside Glucose 99 190 347 H 274 H Test 04/08/17 07:11 04/08/17 09:49 04/08/17 12:30 White Blood Count 9.7 # Red Blood Count 4.08 L Hemoglobin 13.2 Hematocrit 41.0 Mean Corpuscular Volume 100.5 Mean Corpuscular Hemoglobin 32.4 Mean Corpuscular Hemoglobin Concent 32.2 Red Cell Distribution Width 13.7 Platelet Count 152 Mean Platelet Volume 10.8 H Neutrophils % 80.4 H Lymphocytes % 11.3 L Monocytes % 5.8 Eosinophils % 0.1 Basophils % 0.2 Nucleated Red Blood Cells % 0.0 Neutrophils # 7.8 H Lymphocytes # 1.1 Monocytes # 0.6 Eosinophils # 0.0 Basophils # 0.0 Nucleated Red Blood Cells # 0.0 Sodium Level 138 Potassium Level 4.9 Chloride Level 98 Carbon Dioxide Level 34 H Anion Gap 11 Blood Urea Nitrogen 66 H Creatinine 1.32 H Glucose Level 85 Calcium Level 9.2 Phosphorus Level 4.9 Magnesium Level 2.2 Bedside Glucose 200 81 Medications Medications Current Medications Ondansetron HCl (Zofran Inj) 4 mg Q6H PRN IV NAUSEA AND/OR VOMITING; Start at 22:30 Acetaminophen (Tylenol Tab) 650 mg Q6H PRN PO PAIN LEVEL 1-3 OR FEVER; Start 04/03/17 at 22:30 Docusate Sodium (Colace) 100 mg Q12H PRN PO CONSTIPATION; Start 04/03/17 at 22 :30 Bisacodyl (Dulcolax) 5 mg DAILY PRN PO CONSTIPATION Last administered on 00:15; Admin Dose 5 MG; Start 04/03/17 at 22:30 Aspirin (Halfprin) 81 mg DAILY PO Last administered on 04/08/17 09:53; Admin Dose 81 MG; Start 04/04/17 at 09:00 Spironolactone (Aldactone) 100 mg BID PO Last administered on 04/05/17 08:52 ; Admin Dose 100 MG; Start 04/04/17 at 09:00; Status Future Hold Tramadol HCl (Ultram) 50 mg DAILY PRN PO PAIN; Start 04/04/17 at 06:00 Pantoprazole 40 mg 40 mg DAILY@06 PO Last administered on 04/08/17 07:05; Admin Dose 40 MG; Start 04/05/17 at 06:00 Levofloxacin/ Dextrose (Levaquin 750 Mg/ D5W 150 ml (Pmx)) 150 ml @ 100 mls/hr Q48H IVPB Last administered on 04/08/17 09:52; Admin Dose 100 MLS/HR; Start 04/04/17 at 09:00 Al Hydrox/Mg Hydrox/Simethicone (Mag-Al Plus) 30 ml Q6H PRN PO GASTROINTESTINAL UPSET Last administered on 04/05/17 01:01; Admin Dose 30 ML; Start 04/05/17 at 00:53 Simethicone (Mylicon) 80 mg Q6H PRN PO DISTENSION/GAS/BLOATING Last administered on 04/05/17 01:01; Admin Dose 80 MG; Start 04/05/17 at 00:53 Methadone HCl 30 mg 30 mg TID PO Last administered on 04/08/17 12:27; Admin Dose 30 MG; Start 04/06/17 at 07:00 Sodium Chloride (1/2 NS) 1,000 ml @ 40 mls/hr Q24H IV Last administered on 21:57; Admin Dose 40 MLS/HR; Start 04/05/17 at 18:30 Insulin Glargine (Lantus) 13 unit DAILY@20 SC Last administered on 04/07/17 22:16; Admin Dose 13 UNIT; Start 04/06/17 at 20:00 Diagnostic Test (Pha) (Accu-Chek) 1 ea 02 XX ; Start 04/07/17 at 02:00 Miscellaneous Information 1 ea NOTE XX ; Start 04/06/17 at 10:30 Glucose (Glutose) 15 gm Q15M PRN PO DECREASED GLUCOSE; Start 04/06/17 at 10:30 Glucose (Glutose) 22.5 gm Q15M PRN PO DECREASED GLUCOSE; Start 04/06/17 at 10: 30 Dextrose (D50w Syringe) 25 ml Q15M PRN IV DECREASED GLUCOSE; Start 04/06/17 at 10:30 Dextrose (D50w Syringe) 50 ml Q15M PRN IV DECREASED GLUCOSE; Start 04/06/17 at 10:30 Glucagon (Glucagen) 1 mg Q15M PRN IM DECREASED GLUCOSE; Start 04/06/17 at 10: 30 Glucose (Glutose) 15 gm Q15M PRN BUCCAL DECREASED GLUCOSE; Start 04/06/17 at 10:30 Nystatin (Nystatin Susp) 5 ml QID PO Last administered on 04/08/17t 12:27; Admin Dose 5 ML; Start 04/07/17 at 13:00; Stop 04/14/17 at 12:59 IV Flush (NS 10 ml) 10 ml PRN PRN IV IV PROTOCOL; Start 04/07/17 at 20:30 Prednisone (Prednisone) 30 mg DAILY PO ; Start 04/09/17 at 09:00 CUAUHTEMOC CORRALES Apr 08, 2017 13:19
--- NOTE | 2017-04-08 14:04 | PN ---
Date/Time of Note Date/Time of Note DATE: 04/08/17 TIME: 14:03 Assessment/Plan VTE Prophylaxis VTE Prophylaxis Intervention: ambulation, SCD's Lines/Catheters IV Catheter Type (from Nrs): PICC Line Central line still needed: Yes Urinary Cath still in place: Yes Reason Cath still needed: urinary retention Assessment/Plan Chief Complaint/Hosp Course Assessment/Plan #. SOB secondary to COPD exacerbation versus CHF exacerbation - Will continue on bronchodilators, O2, Steroids, and levaquin. - prednisone taper, slow -states much improved breathing -more likely copd ex at this point as cardiology does not see significant cardiac dysfunction -appears patient unable to fill inhaled steroid such as Advair outpatient and mistakenly treated for worsening CHF instead. Will need consistent inhaled steroid therapy for this patient with what appears to be severe COPD #hyperK -resolved -s/p calcium and kayexalate -2/2 high spironolactone dose and holding lasix -holding lasix and spironolactone #uti -on levaquin for COPD ex, will treat as well #. acute on chronic kidney disease - Renal US shows bilateral kidney parenchyma slightly increased echogenicity which may be secondary to medical renal disease. No hydronephrosis seen. - Nephrology consult placed -improved with mild hydration -watters placed #. COPD - We will resume all medications, in addition treat as per #1. #. compensated CHF - BNP is 500, CHF may be due to patient's hyperdynamic heart -cardiology to remanage patient's medications as patient's current issues may be due more to copd than chf. -no lasix or spironolactone on DC likely #. hepatitis C - Continue monitoring #. history of heroin use - Currently on methadone - She takes approximately methadone 130 mg once daily, will have to adjust for renal dose for now, will resume regular dose once regular function/hyperK resolves - Will continue home dose when renal function and K normalize #. Disposition - Continue monitoring on Telemetry, -prednisone taper -high bounce back risk as patient is severe copd unable to fill simple inhaled steroid, will speak to CM about making sure an inhaled steroid is covered before DC. Problems: Subjective 24 Hr Interval Summary Free Text/Dictation patient breathing better, noticed slight swelling of legs Exam/Review of Systems Vital Signs Vitals Vital Signs Date Time Temp Pulse Resp B/P Pulse Ox O2 Delivery O2 Flow Rate FiO2 04/08/17 13:08 89 04/08/17 12:53 97.7 18 105/63 91 04/08/17 08:16 Nasal Cannula 4.0 04/04/17 09:19 Intake and Output 04/07/17 04/07/17 04/08/17 15:00 23:00 07:00 Intake Total 1100 ml 900 ml Output Total 1200 ml 650 ml Balance -100 ml 250 ml Exam General: in no acute respiratory distress HEENT: Atraumatic, normocephalic. The pupils are equal, round and reactive. Extraocular motor are intact Neck: Supple with full range of motion. Chest: Right anterior chest tender to palpation Lungs: Poor air movement bilaterally, mild expiratory rales, no wheezing Heart: Normal S1-S2, Regular rhythm and rate. No murmurs appreciated Abdomen: Soft , nontender, nondistended , bowel sounds are present. No guarding no rebound tenderness , Extremities: Normal to inspection, no edema no cyanosis Neurologic: Normal mental status, speech normal, cranial nerves II through XII are intact, motor and sensory are intact, no focal weakness Results Result Diagram: 04/08/1771004/08/17 0711 Results 24 hrs Laboratory Tests Test 04/07/17 17:11 04/07/17 22:13 04/08/17 01:45 04/08/17 03:05 Bedside Glucose 99 190 347 H 274 H Test 04/08/17 07:11 04/08/17 09:49 04/08/17 12:30 White Blood Count 9.7 # Red Blood Count 4.08 L Hemoglobin 13.2 Hematocrit 41.0 Mean Corpuscular Volume 100.5 Mean Corpuscular Hemoglobin 32.4 Mean Corpuscular Hemoglobin Concent 32.2 Red Cell Distribution Width 13.7 Platelet Count 152 Mean Platelet Volume 10.8 H Neutrophils % 80.4 H Lymphocytes % 11.3 L Monocytes % 5.8 Eosinophils % 0.1 Basophils % 0.2 Nucleated Red Blood Cells % 0.0 Neutrophils # 7.8 H Lymphocytes # 1.1 Monocytes # 0.6 Eosinophils # 0.0 Basophils # 0.0 Nucleated Red Blood Cells # 0.0 Sodium Level 138 Potassium Level 4.9 Chloride Level 98 Carbon Dioxide Level 34 H Anion Gap 11 Blood Urea Nitrogen 66 H Creatinine 1.32 H Glucose Level 85 Calcium Level 9.2 Phosphorus Level 4.9 Magnesium Level 2.2 Bedside Glucose 200 81 Medications Medications Current Medications Ondansetron HCl (Zofran Inj) 4 mg Q6H PRN IV NAUSEA AND/OR VOMITING; Start at 22:30 Acetaminophen (Tylenol Tab) 650 mg Q6H PRN PO PAIN LEVEL 1-3 OR FEVER; Start 04/03/17 at 22:30 Docusate Sodium (Colace) 100 mg Q12H PRN PO CONSTIPATION; Start 04/03/17 at 22 :30 Bisacodyl (Dulcolax) 5 mg DAILY PRN PO CONSTIPATION Last administered on 00:15; Admin Dose 5 MG; Start 04/03/17 at 22:30 Aspirin (Halfprin) 81 mg DAILY PO Last administered on 04/08/17 09:53; Admin Dose 81 MG; Start 04/04/17 at 09:00 Spironolactone (Aldactone) 100 mg BID PO Last administered on 04/05/17 08:52 ; Admin Dose 100 MG; Start 04/04/17 at 09:00; Status Future Hold Tramadol HCl (Ultram) 50 mg DAILY PRN PO PAIN; Start 04/04/17 at 06:00 Pantoprazole 40 mg 40 mg DAILY@06 PO Last administered on 04/08/17 07:05; Admin Dose 40 MG; Start 04/05/17 at 06:00 Levofloxacin/ Dextrose (Levaquin 750 Mg/ D5W 150 ml (Pmx)) 150 ml @ 100 mls/hr Q48H IVPB Last administered on 04/08/17 09:52; Admin Dose 100 MLS/HR; Start 04/04/17 at 09:00 Al Hydrox/Mg Hydrox/Simethicone (Mag-Al Plus) 30 ml Q6H PRN PO GASTROINTESTINAL UPSET Last administered on 04/05/17 01:01; Admin Dose 30 ML; Start 04/05/17 at 00:53 Simethicone (Mylicon) 80 mg Q6H PRN PO DISTENSION/GAS/BLOATING Last administered on 04/05/17 01:01; Admin Dose 80 MG; Start 04/05/17 at 00:53 Methadone HCl 30 mg 30 mg TID PO Last administered on 04/08/17 12:27; Admin Dose 30 MG; Start 04/06/17 at 07:00 Sodium Chloride (1/2 NS) 1,000 ml @ 40 mls/hr Q24H IV Last administered on 21:57; Admin Dose 40 MLS/HR; Start 04/05/17 at 18:30 Insulin Glargine (Lantus) 13 unit DAILY@20 SC Last administered on 04/07/17 22:16; Admin Dose 13 UNIT; Start 04/06/17 at 20:00 Diagnostic Test (Pha) (Accu-Chek) 1 ea 02 XX ; Start 04/07/17 at 02:00 Miscellaneous Information 1 ea NOTE XX ; Start 04/06/17 at 10:30 Glucose (Glutose) 15 gm Q15M PRN PO DECREASED GLUCOSE; Start 04/06/17 at 10:30 Glucose (Glutose) 22.5 gm Q15M PRN PO DECREASED GLUCOSE; Start 04/06/17 at 10: 30 Dextrose (D50w Syringe) 25 ml Q15M PRN IV DECREASED GLUCOSE; Start 04/06/17 at 10:30 Dextrose (D50w Syringe) 50 ml Q15M PRN IV DECREASED GLUCOSE; Start 04/06/17 at 10:30 Glucagon (Glucagen) 1 mg Q15M PRN IM DECREASED GLUCOSE; Start 04/06/17 at 10: 30 Glucose (Glutose) 15 gm Q15M PRN BUCCAL DECREASED GLUCOSE; Start 04/06/17 at 10:30 Nystatin (Nystatin Susp) 5 ml QID PO Last administered on 04/08/17 12:27; Admin Dose 5 ML; Start 04/07/17 at 13:00; Stop 04/14/17 at 12:59 IV Flush (NS 10 ml) 10 ml PRN PRN IV IV PROTOCOL; Start 04/07/17 at 20:30 Prednisone (Prednisone) 30 mg DAILY PO ; Start 04/09/17 at 09:00 SUMEET VELEZ Apr 08, 2017 14:04
--- NOTE | 2017-04-08 14:33 | RADRPT ---
Vent Rate: 123 bpm RR Interval: 0 msec IA Interval: 178 msec QRS Duration: 72 msec QT Interval: 328 msec QTC Interval: 469 msec P-R-T [place]: 80 - 82 - 67 degrees Sinus rhythm with frequent premature ventricular complexes Cannot rule out Anterior infarct , age undetermined Abnormal ECG Electronically Signed By: Luca Diamond [id number]
[2017-04-08] MEDS ORDERED: SOD CHLORIDE 0.9% 100 ML ONE (14:55)
[2017-04-08] MEDS: SOD CHLORIDE 0.45% 1,000 ML IV SCH (17:47)
[2017-04-08 18:27] LABS: PTH CALCIUM 9.1 mg/dL (8.6-10.4)
--- NOTE | 2017-04-08 20:15 | CONS ---
Date/Time of Note Date/Time of Note DATE: 04/08/17 TIME: 20:14 Assessment/Plan Assessment/Plan Chief Complaint/Hosp Course 1. Acute on chronic kidney disease. Renal US shows bilateral kidney parenchyma slightly increased echogenicity which may be secondary to medical renal disease. No hydronephrosis seen. 2. SOB secondary to COPD exacerbation versus CHF exacerbation, better 3. COPD 4. Hs of CHF 5. HX hepatitis C 6. history of heroin use Problems: Additional Assessment/Plan 1. Pt requested to prescribe diuretic before leave. 2. Pt needs to follow diabetes control and keep Hypertension down Consultation Date/Type/Reason Admit Date/Time Apr 03, 2017 at 19:47 Initial Consult Date 04/05/17 Type of Consultation: nephrology Reason for Consultation Dr Dinero Exam/Review of Systems Vital Signs Vitals Vital Signs Date Time Temp Pulse Resp B/P Pulse Ox O2 Delivery O2 Flow Rate FiO2 04/08/17 20:08 99 04/08/17 19:06 2.0 04/08/17 19:06 20 95 Nasal Cannula 04/08/17 16:21 97.8 99/58 04/04/17 09:19 Intake and Output 04/07/17 04/07/17 04/08/17 15:00 23:00 07:00 Intake Total 1100 ml 900 ml Output Total 1200 ml 650 ml Balance -100 ml 250 ml Exam Express desire to leave Constitutional: alert, oriented Respiratory: diminished breath sounds Cardiovascular: regular rate and rhythm Gastrointestinal: soft Results Result Diagram: 04/08/17 0711 04/08/17 0711 Results 24 hrs Laboratory Tests Test 04/07/17 22:13 04/08/17 01:45 04/08/17 03:05 04/08/17 07:11 Bedside Glucose 190 347 H 274 H White Blood Count 9.7 # Red Blood Count 4.08 L Hemoglobin 13.2 Hematocrit 41.0 Mean Corpuscular Volume 100.5 Mean Corpuscular Hemoglobin 32.4 Mean Corpuscular Hemoglobin Concent 32.2 Red Cell Distribution Width 13.7 Platelet Count 152 Mean Platelet Volume 10.8 H Neutrophils % 80.4 H Lymphocytes % 11.3 L Monocytes % 5.8 Eosinophils % 0.1 Basophils % 0.2 Nucleated Red Blood Cells % 0.0 Neutrophils # 7.8 H Lymphocytes # 1.1 Monocytes # 0.6 Eosinophils # 0.0 Basophils # 0.0 Nucleated Red Blood Cells # 0.0 Sodium Level 138 Potassium Level 4.9 Chloride Level 98 Carbon Dioxide Level 34 H Anion Gap 11 Blood Urea Nitrogen 66 H Creatinine 1.32 H Glucose Level 85 Calcium Level 9.2 Phosphorus Level 4.9 Magnesium Level 2.2 Test 04/08/17 09:49 04/08/17 12:30 04/08/17 17:45 Bedside Glucose 200 81 129 Medications Medications Current Medications Ondansetron HCl (Zofran Inj) 4 mg Q6H PRN IV NAUSEA AND/OR VOMITING; Start at 22:30 Acetaminophen (Tylenol Tab) 650 mg Q6H PRN PO PAIN LEVEL 1-3 OR FEVER; Start 04/03/17 at 22:30 Bisacodyl (Dulcolax) 5 mg DAILY PRN PO CONSTIPATION Last administered on 00:15; Admin Dose 5 MG; Start 04/03/17 at 22:30 Aspirin (Halfprin) 81 mg DAILY PO Last administered on 04/08/17 09:53; Admin Dose 81 MG; Start 04/04/17 at 09:00 Spironolactone (Aldactone) 100 mg BID PO Last administered on 04/05/17 08:52 ; Admin Dose 100 MG; Start 04/04/17 at 09:00; Status Future Hold Tramadol HCl (Ultram) 50 mg DAILY PRN PO PAIN; Start 04/04/17 at 06:00 Pantoprazole 40 mg 40 mg DAILY@06 PO Last administered on 04/08/17 07:05; Admin Dose 40 MG; Start 04/05/17 at 06:00 Levofloxacin/ Dextrose (Levaquin 750 Mg/ D5W 150 ml (Pmx)) 150 ml @ 100 mls/hr Q48H IVPB Last administered on 04/08/17 09:52; Admin Dose 100 MLS/HR; Start 04/04/17 at 09:00 Al Hydrox/Mg Hydrox/Simethicone (Mag-Al Plus) 30 ml Q6H PRN PO GASTROINTESTINAL UPSET Last administered on 04/05/17 01:01; Admin Dose 30 ML; Start 04/05/17 at 00:53 Simethicone (Mylicon) 80 mg Q6H PRN PO DISTENSION/GAS/BLOATING Last administered on 04/05/17 01:01; Admin Dose 80 MG; Start 04/05/17 at 00:53 Methadone HCl 30 mg 30 mg TID PO Last administered on 04/08/17 12:27; Admin Dose 30 MG; Start 04/06/17 at 07:00 Sodium Chloride (1/2 NS) 1,000 ml @ 40 mls/hr Q24H IV Last administered on 17:47; Admin Dose 40 MLS/HR; Start 04/05/17 at 18:30 Insulin Glargine (Lantus) 13 unit DAILY@20 SC Last administered on 04/07/17 22:16; Admin Dose 13 UNIT; Start 04/06/17 at 20:00 Diagnostic Test (Pha) (Accu-Chek) 1 ea 02 XX ; Start 04/07/17 at 02:00 Miscellaneous Information 1 ea NOTE XX ; Start 04/06/17 at 10:30 Glucose (Glutose) 15 gm Q15M PRN PO DECREASED GLUCOSE; Start 04/06/17 at 10:30 Glucose (Glutose) 22.5 gm Q15M PRN PO DECREASED GLUCOSE; Start 04/06/17 at 10: 30 Dextrose (D50w Syringe) 25 ml Q15M PRN IV DECREASED GLUCOSE; Start 04/06/17 at 10:30 Dextrose (D50w Syringe) 50 ml Q15M PRN IV DECREASED GLUCOSE; Start 04/06/17 at 10:30 Glucagon (Glucagen) 1 mg Q15M PRN IM DECREASED GLUCOSE; Start 04/06/17 at 10: 30 Glucose (Glutose) 15 gm Q15M PRN BUCCAL DECREASED GLUCOSE; Start 04/06/17 at 10:30 Nystatin (Nystatin Susp) 5 ml QID PO Last administered on 04/08/17 17:46; Admin Dose 5 ML; Start 04/07/17 at 13:00; Stop 04/14/17 at 12:59 IV Flush (NS 10 ml) 10 ml PRN PRN IV IV PROTOCOL; Start 04/07/17 at 20:30 Prednisone (Prednisone) 30 mg DAILY PO ; Start 04/09/17 at 09:00 Docusate Sodium (Colace Liquid Cup) 50 mg Q12 PO ; Start 04/08/17 at 21:00 GERA WATKINS Apr 08, 2017 20:15
[2017-04-08] MEDS: DOCUSATE SODIUM 10 MG/ML (10ML CUP) PO SCH (20:47)
[2017-04-08] MEDS: INSULIN GLARGINE [LANtus] 3 ML PEN SC SCH (20:55)
[2017-04-08] MEDS ORDERED: ZOLPIDEM 5 MG TAB PO ONE (21:00)
[2017-04-09] VITALS (8 sets, daily range): BP systolic 95–118; BP diastolic 63–77; PULSE 77–86; RESP 16–19
[2017-04-09] MEDS: ACCU-CHEK XX SCH (02:30)
[2017-04-09] MEDS: PANTOPRAZOLE (EC) 40 MG TAB PO SCH (06:28)
[2017-04-09] MEDS: INSULIN ASPART [NOVOLOG] 3 ML PEN SC SCH (08:00)
[2017-04-09 08:12] LABS: BASOPHILS % 0.3 % (0.0-2.0); EOSINOPHILS # 0.4 10^3/ul (0.0-0.5); HEMATOCRIT 39.6 % (37.0-47.0); HEMOGLOBIN 12.7 g/dl (12.0-16.0); LYMPHOCYTES # 2.7 10^3/ul (0.8-2.9); LYMPHOCYTES % 28.6 % (15.0-51.0); MEAN CORPUSCULAR HEMOGLOBIN 32.8 pg (29.0-33.0); MEAN CORPUSCULAR HGB CONC 32.1 g/dl (32.0-37.0); MEAN CORPUSCULAR VOLUME 102.3 fl (82.0-101.0); MEAN PLATELET VOLUME 10.4 fl (7.4-10.4); MONOCYTE # 0.8 10^3/ul (0.3-0.9); MONOCYTES % 8.7 % (0.0-11.0); NEUTROPHIL # 5.3 10^3/ul (1.6-7.5); NEUTROPHILS % 54.8 % (39.0-77.0); PLATELET COUNT 141 10^3/UL (140-415); RED BLOOD COUNT 3.87 10^6/ul (4.20-5.40); RED CELL DISTRIBUTION WIDTH 13.9 % (11.5-14.5); WHITE BLOOD COUNT 9.6 10^3/ul (4.8-10.8)
[2017-04-09] MEDS: ALBUTEROL/IPRATROPIUM (NEB) 3 ML AMP HHN SCH (08:30)
[2017-04-09 08:34] LABS: CALCIUM 8.6 mg/dl (8.4-10.2); CREATININE 1.38 mg/dl (0.44-1.00)
[2017-04-09] MEDS ORDERED: predniSONE 20 MG TAB PO SCH (09:00)
[2017-04-09] MEDS: DOCUSATE SODIUM 10 MG/ML (10ML CUP) PO SCH (09:21)
[2017-04-09] MEDS: ASPIRIN (EC) 81 MG TAB PO SCH (09:21)
[2017-04-09] MEDS: NYSTATIN SUSP 5 ML CUP PO SCH (09:21)
[2017-04-09] MEDS: METHADONE 10 MG TAB PO SCH (09:23)
[2017-04-09] MEDS: MOMETASONE 0.24 GM INHALER INH SCH (09:24)
[2017-04-09] MEDS ORDERED: TIOTROPIUM 18 MCG CAPSULE INHA DEV INH SCH (10:00)
[2017-04-09 10:03] LABS: ADD UMIC YES; UR ASCORBIC ACID NEGATIVE (NEGATIVE); UR BILIRUBIN (Dip) NEGATIVE (NEGATIVE); UR BLOOD (Dip) NEGATIVE (NEGATIVE); UR CLARITY CLEAR (CLEAR); UR COLOR YELLOW (YELLOW); UR GLUCOSE (Dip) NEGATIVE (NEGATIVE); UR KETONES (Dip) NEGATIVE (NEGATIVE); UR LEUKOCYTE ESTERASE (Dip) TRACE Leu/ul (NEGATIVE); UR NITRITE (Dip) NEGATIVE (NEGATIVE); UR RBC 3 /HPF (0-5); UR SPECIFIC GRAVITY (Dip) 1.015 (1.003-1.030); UR SQUAMOUS EPITHELIAL CELL FEW /HPF (FEW); UR TOTAL PROTEIN (Dip) NEGATIVE (NEGATIVE); UR UROBILINOGEN (Dip) NEGATIVE (NEGATIVE)
--- NOTE | 2017-04-09 11:16 | PDOCDIS ---
Discharge Instructions CONDITION Patient Condition: Stable HOME CARE INSTRUCTIONS: Special Diet: CARDIAC FOLLOW UP/APPOINTMENTS Follow-up Plan 1. Follow up with your primary care provider as soon as possible 2. Please see if a advertising supervisor as soon as possible 3. Take medications only as directed SUMEET VELEZ Apr 09, 2017 11:16
[2017-04-09] MEDS ORDERED: NYST1000 PO (11:26)
[2017-04-09] MEDS ORDERED: MED4DP PO (11:26)
[2017-04-09] MEDS ORDERED: ADV50050 INH (11:26)
[2017-04-09] MEDS ORDERED: FURO20TA3 PO (11:26)
[2017-04-09] MEDS ORDERED: ALBU8.5H3 INH (11:26)
[2017-04-09] MEDS ORDERED: TIOT18CA INH (11:26)
[2017-04-09] MEDS ORDERED: LEVO500T10 PO (11:26)
[2017-04-09] MEDS ORDERED: ASPI81TA16 PO (11:26)
--- NOTE | 2017-04-09 12:41 | CONS ---
Date/Time of Note Date/Time of Note DATE: 04/09/17 TIME: 12:40 Assessment/Plan Assessment/Plan Chief Complaint/Hosp Course 1. Acute on chronic kidney disease. better 2. SOB secondary to COPD exacerbation versus CHF exacerbation, better 3. COPD 4. Hs of CHF 5. HX hepatitis C 6. history of heroin use Problems: Additional Assessment/Plan 1. pt is discharging home Consultation Date/Type/Reason Admit Date/Time Apr 03, 2017 at 19:47 Initial Consult Date 04/05/17 Type of Consultation: nephrology 24 HR Interval Summary Constitutional: improved, no complaints Exam/Review of Systems Vital Signs Vitals Vital Signs Date Time Temp Pulse Resp B/P Pulse Ox O2 Delivery O2 Flow Rate FiO2 04/09/17 12:23 85 04/09/17 12:12 97.3 18 103/66 94 04/09/17 08:15 Nasal Cannula 3.0 Intake and Output 04/08/17 04/08/17 04/09/17 14:59 22:59 06:59 Intake Total 1480 ml Output Total 1450 ml Balance 30 ml Exam Constitutional: alert, oriented Respiratory: clear to auscultation Cardiovascular: regular rate and rhythm Results Result Diagram: 04/09/17 0742 04/09/17 0741 Results 24 hrs Laboratory Tests Test 04/08/17 17:45 04/08/17 20:46 04/09/17 02:41 04/09/17 07:41 Bedside Glucose 129 165 96 Sodium Level 139 Potassium Level 4.0 Chloride Level 103 Carbon Dioxide Level 31 Anion Gap 9 Blood Urea Nitrogen 52 H Creatinine 1.38 H Glucose Level 110 Calcium Level 8.6 Phosphorus Level 4.0 Magnesium Level 2.0 Test 04/09/17 07:42 04/09/17 08:00 04/09/17 08:21 04/09/17 10:37 White Blood Count 9.6 Red Blood Count 3.87 L Hemoglobin 12.7 Hematocrit 39.6 Mean Corpuscular Volume 102.3 H Mean Corpuscular Hemoglobin 32.8 Mean Corpuscular Hemoglobin Concent 32.1 Red Cell Distribution Width 13.9 Platelet Count 141 Mean Platelet Volume 10.4 Neutrophils % 54.8 Lymphocytes % 28.6 Monocytes % 8.7 Eosinophils % 4.0 Basophils % 0.3 Nucleated Red Blood Cells % 0.0 Neutrophils # 5.3 Lymphocytes # 2.7 Monocytes # 0.8 Eosinophils # 0.4 Basophils # 0.0 Nucleated Red Blood Cells # 0.0 Urine Color YELLOW Urine Clarity CLEAR Urine pH 7.0 Urine Specific [place] 1.015 Urine Ketones NEGATIVE Urine Nitrite NEGATIVE Urine Bilirubin NEGATIVE Urine Urobilinogen NEGATIVE Urine Leukocyte Esterase TRACE A Urine Microscopic RBC 3 Urine Microscopic WBC 2 Urine Squamous Epithelial Cells FEW Urine Hemoglobin NEGATIVE Urine Glucose NEGATIVE Urine Total Protein NEGATIVE Bedside Glucose 91 Lab Scanned Report REFERENCE LAB Medications Medications Current Medications Ondansetron HCl (Zofran Inj) 4 mg Q6H PRN IV NAUSEA AND/OR VOMITING; Start at 22:30 Acetaminophen (Tylenol Tab) 650 mg Q6H PRN PO PAIN LEVEL 1-3 OR FEVER; Start 04/03/17 at 22:30 Bisacodyl (Dulcolax) 5 mg DAILY PRN PO CONSTIPATION Last administered on 00:15; Admin Dose 5 MG; Start 04/03/17 at 22:30 Aspirin (Halfprin) 81 mg DAILY PO Last administered on 04/09/17 09:21; Admin Dose 81 MG; Start 04/04/17 at 09:00 Tramadol HCl (Ultram) 50 mg DAILY PRN PO PAIN; Start 04/04/17 at 06:00 Pantoprazole 40 mg 40 mg DAILY@06 PO Last administered on 04/09/17 06:28; Admin Dose 40 MG; Start 04/05/17 at 06:00 Levofloxacin/ Dextrose (Levaquin 750 Mg/ D5W 150 ml (Pmx)) 150 ml @ 100 mls/hr Q48H IVPB Last administered on 04/08/17 09:52; Admin Dose 100 MLS/HR; Start 04/04/17 at 09:00 Al Hydrox/Mg Hydrox/Simethicone (Mag-Al Plus) 30 ml Q6H PRN PO GASTROINTESTINAL UPSET Last administered on 04/05/17 01:01; Admin Dose 30 ML; Start 04/05/17 at 00:53 Simethicone (Mylicon) 80 mg Q6H PRN PO DISTENSION/GAS/BLOATING Last administered on 04/05/17 01:01; Admin Dose 80 MG; Start 04/05/17 at 00:53 Methadone HCl (Methadone) 30 mg TID PO Last administered on 04/09/17 09:23; Admin Dose 30 MG; Start 04/06/17 at 07:00 Diagnostic Test (Pha) (Accu-Chek) 1 ea 02 XX Last administered on 04/09/17 02 :30; Admin Dose 1 EA; Start 04/07/17 at 02:00 Miscellaneous Information 1 ea NOTE XX ; Start 04/06/17 at 10:30 Glucose (Glutose) 15 gm Q15M PRN PO DECREASED GLUCOSE; Start 04/06/17 at 10:30 Glucose (Glutose) 22.5 gm Q15M PRN PO DECREASED GLUCOSE; Start 04/06/17 at 10: 30 Dextrose (D50w Syringe) 25 ml Q15M PRN IV DECREASED GLUCOSE; Start 04/06/17 at 10:30 Dextrose (D50w Syringe) 50 ml Q15M PRN IV DECREASED GLUCOSE; Start 04/06/17 at 10:30 Glucagon (Glucagen) 1 mg Q15M PRN IM DECREASED GLUCOSE; Start 04/06/17 at 10: 30 Glucose (Glutose) 15 gm Q15M PRN BUCCAL DECREASED GLUCOSE; Start 04/06/17 at 10:30 Nystatin (Nystatin Susp) 5 ml QID PO Last administered on 04/09/17 09:21; Admin Dose 5 ML; Start 04/07/17 at 13:00; Stop 04/14/17 at 12:59 IV Flush (NS 10 ml) 10 ml PRN PRN IV IV PROTOCOL; Start 04/07/17 at 20:30 Docusate Sodium (Colace Liquid Cup) 50 mg Q12 PO Last administered on 09:21; Admin Dose 50 MG; Start 04/08/17 at 21:00 Prednisone (Prednisone) 20 mg DAILY PO ; Start 04/10/17 at 09:00 Salmeterol Xinafoate/ Fluticasone (Advair 500/50 Diskus) 1 inh BID INH ; Start 04/09/17 at 21:00 Tiotropium [place] (Spiriva) 1 inh DAILY INH Last administered on 04/09/17 11 :05; Admin Dose 1 INH; Start 04/09/17 at 10:00 GERA WATKINS Apr 09, 2017 12:41
--- NOTE | 2017-04-09 15:07 | DS ---
Date/Time of Note Date/Time of Note DATE: 04/09/17 TIME: 15:07 Discharge Summary Admission/Discharge Info Admit Date/Time Apr 03, 2017 at 19:47 Discharge Date/Time Apr 09, 2017 at 13:24 Patient Condition: Stable Hospital Course Patient is a 61-year-old female who presents to [facility] for shortness of breath and was originally thought to be in CHF exacerbation. Patient was seen by nephrology and cardiology as she developed electrolyte derangement including hyperkalemia and [place] I on chronic kidney disease. It appears patient may have been self treating for possible CHF exacerbation, however upon evaluation from industrial court magistrate, her shortness of breath was not attributed to pure CHF. During the admission she was switched over to a primarily COPD exacerbation treatment and she quickly recovered. Patient will need to be on inhaled corticosteroid as well as inhaled anticholinergic and will be discharged with a short course of steroids. Patient understands importance of following up with her primary care provider and filter tip inspector as soon as possible. Discharge diagnoses Shortness of breath secondary to COPD exacerbation Acute on chronic CHF Hyperkalemia UTI Acute kidney injury on chronic kidney disease COPD Compensated CHF Hepatitis C History of heroin use Home Meds Active Scripts Levofloxacin* (Levofloxacin*) 500 Mg Tablet, 500 MG PO DAILY, #3 TAB Prov:SUMEET VELEZ 04/09/17 Methylprednisolone* (Medrol* DOSE PACK) 4 Mg/Dose-Pack Tab.ds.pk, 4 MG PO . DIRECTED, #1 PACKET Prov:SUMEET VELEZ 04/09/17 Furosemide* (Furosemide*) 20 Mg Tablet, 10 MG PO DAILY Y for leg swelling for 30 Days, #15 TAB Prov:SUMEET VELEZ 04/09/17 Salmeterol Xinaf-Fluticasone* (Advair*) 500/50 Diskus Inhaler, 1 INH INH BID for 30 Days, #1 INHALER 2 Refills Prov:SUMEET VELEZ 04/09/17 Nystatin (Nystatin) 100,000 Unit/1 Ml Oral.susp, 5 ML PO QID for 5 Days, #100 ML Prov:SUMEET VELEZ 04/09/17 Tiotropium [place]* (Spiriva*) 18 Mcg Cap.w.dev, 1 INH INH DAILY for 30 Days, # 1 INHALER 2 Refills Prov:SUMEET VELEZ 04/09/17 Albuterol Sulfate* (Proair HFA*) 8.5 Gm Hfa.aer.ad, 2 PUFF INH Q4H Y for WHEEZING AND SOB, #1 INHALER 6 Refills Prov:SUMEET VELEZ 04/09/17 Aspirin (LOW DOSE ASPIRIN EC) 81 Mg Tablet.dr, 81 MG PO DAILY, #30 TAB Prov:SUMEET VELEZ 04/09/17 Reported Medications Pantoprazole* (Protonix*) 40 Mg Tablet.dr, 40 MG PO DAILY, TAB 06/30/15 Tramadol Hcl* (Ultram*) 50 Mg Tablet, 50 MG PO DAILY Y for PAIN, TAB 06/30/15 Methadone Hcl* (Methadone*) 10 Mg Tab, 130 MG PO DAILY, TAB 06/30/15 Discontinued Reported Medications Spironolactone* (Aldactone*) 100 Mg Tablet, 100 MG PO BID, #60 TAB 04/03/17 Furosemide* (Furosemide*) 40 Mg/5 Ml Solution, 40 MG PO BID, #300 ML 04/03/17 Lisinopril* (Lisinopril*) 5 Mg Tablet, 5 MG PO DAILY, #30 TAB 06/30/15 Megestrol Acetate* (Megace*) 40 Mg Tab, 40 MG PO TID, TAB 06/30/15 Discontinued Scripts Fluticasone Propionate* (Flovent* 220) 13 Gm Aer.w.adap, 2 PUFF INHALATION BID, #1 INHALER Prov:SUMEET PERAZA MD 08/15/15 Prednisone* (Prednisone*) 20 Mg Tab, 20 MG PO BID, #8 TAB Prov:SUMEET PERAZA MD 08/15/15 Follow-up Plan 1. Follow up with your primary care provider as soon as possible 2. Please see if a filter tip inspector as soon as possible 3. Take medications only as directed Primary Care Provider Placido Fofana Time spent on discharge: > 30 minutes Pending Labs Laboratory Tests Test 04/08/17 17:45 04/08/17 20:46 04/09/17 02:41 04/09/17 07:41 Bedside Glucose 129mg/dL (70-220) 165mg/dL (70-220) 96mg/dL (70-220) Sodium Level 139mmol/L (135-144) Potassium Level 4.0mmol/L (3.5-5.1) Chloride Level 103mmol/L (97-110) Carbon Dioxide Level 31mmol/L (21-31) Anion Gap 9 (8-16) Blood Urea Nitrogen 52mg/dl (7-20) Creatinine 1.38mg/dl (0.44-1.00) Glucose Level 110mg/dl (70-220) Calcium Level 8.6mg/dl (8.4-10.2) Phosphorus Level 4.0mg/dl (2.5-4.9) Magnesium Level 2.0mg/dl (1.7-2.5) Test 04/09/17 07:42 04/09/17 08:00 04/09/17 08:21 04/09/17 10:37 White Blood Count 9.610^3/ul (4.8-10.8) Red Blood Count 3.8710^6/ul (4.20-5.40) Hemoglobin 12.7g/dl (12.0-16.0) Hematocrit 39.6% (37.0-47.0) Mean Corpuscular Volume 102.3fl (82.0-101.0) Mean Corpuscular Hemoglobin 32.8pg (29.0-33.0) Mean Corpuscular Hemoglobin Concent 32.1g/dl (32.0-37.0) Red Cell Distribution Width 13.9% (11.5-14.5) Platelet Count 92017^3/UL (140-415) Mean Platelet Volume 10.4fl (7.4-10.4) Neutrophils % 54.8% (39.0-77.0) Lymphocytes % 28.6% (15.0-51.0) Monocytes % 8.7% (0.0-11.0) Eosinophils % 4.0% (0.0-7.0) Basophils % 0.3% (0.0-2.0) Nucleated Red Blood Cells % 0.0/100WBC (0.0-0.0) Neutrophils # 5.310^3/ul (1.6-7.5) Lymphocytes # 2.710^3/ul (0.8-2.9) Monocytes # 0.810^3/ul (0.3-0.9) Eosinophils # 0.410^3/ul (0.0-0.5) Basophils # 0.010^3/ul (0.0-0.1) Nucleated Red Blood Cells # 0.010^3/ul (0.0-0.0) Urine Color YELLOW (YELLOW) Urine Clarity CLEAR (CLEAR) Urine pH 7.0 (5.0-9.0) Urine Specific [place] 1.015 (1.003-1.030) Urine Ketones NEGATIVEmg/dL (NEGATIVE) Urine Nitrite NEGATIVEmg/dL (NEGATIVE) Urine Bilirubin NEGATIVEmg/dL (NEGATIVE) Urine Urobilinogen NEGATIVEmg/dL (NEGATIVE) Urine Leukocyte Esterase TRACELeu/ul (NEGATIVE) Urine Microscopic RBC 3/HPF (0-5) Urine Microscopic WBC 2/HPF (0-5) Urine Squamous Epithelial Cells FEW/HPF (FEW) Urine Hemoglobin NEGATIVEmg/dL (NEGATIVE) Urine Glucose NEGATIVEmg/dL (NEGATIVE) Urine Total Protein NEGATIVEmg/dl (NEGATIVE) Bedside Glucose 91mg/dL (70-220) Lab Scanned Report REFERENCE [id number] SUMEET VELEZ Apr 09, 2017 15:07
[2017-04-09] MEDS ORDERED: SALMETEROL/FLUTICASONE 500/50 INHA INH SCH (21:00)
[2017-04-10] MEDS ORDERED: predniSONE 20 MG TAB PO SCH (09:00)
== END 2017-04-09 13:24 | disposition home or self-care (01) | DRG 190 ==
LOC: E/R 15:02 → MS4 19:47 → E/R 20:51 → MS4 20:51
PROVIDERS: ADMIT Family Medicine; ATTEND Family Medicine
PROC: 02HV33Z Insertion of Infusion Device into Superior Vena Cava, Percutaneous Approach (ICD-10-PCS; principal; 2017-04-07)
DX: J44.1 Chronic obstructive pulmonary disease with (acute) exacerbation (principal); N17.0 Acute kidney failure with tubular necrosis; I13.0 Hypertensive heart and chronic kidney disease with heart failure and stage 1 through stage 4 chronic kidney disease, or unspecified chronic kidney disease; I50.32 Chronic diastolic (congestive) heart failure; N39.0 Urinary tract infection, site not specified; E87.1 Hypo-osmolality and hyponatremia; N18.9 Chronic kidney disease, unspecified; E11.22 Type 2 diabetes mellitus with diabetic chronic kidney disease; Z72.0 Tobacco use; E86.0 Dehydration; E87.5 Hyperkalemia; B19.20 Unspecified viral hepatitis C without hepatic coma; F11.99 Opioid use, unspecified with unspecified opioid-induced disorder
CPT/HCPCS: 36415; 36569; 36600; 71010; 76775; 76937; 80048; 80053; 80061; 80069; 81001; 81003; 82436; 82550; 82553; 82570; 82803; 82962; 83036; 83735; 83880; 83935; 83970; 84100; 84132; 84133; 84155; 84300; 84443; 84484; 85025; 86704; 86709; 86803; 87070; 87340; 87522; 89190; 90686; 93005; 93306; 94640; 94664; 96374; 97162; C9113; J0610; J1815; J1956; J2270; J2920; J2930; J7030; J7512

== ENCOUNTER 2017-05-14 12:52 | Inpatient (IN) | END 2017-05-15 10:00 | disposition left against medical advice (07) | DRG 191 ==

== ENCOUNTER 2017-05-23 20:41 | Emergency (ER) | END 2017-05-23 21:22 | disposition left against medical advice (07) ==

== ENCOUNTER 2017-05-25 03:58 | Inpatient (IN) | END 2017-06-07 18:29 | DRG 470 ==

== ENCOUNTER 2017-06-25 09:34 | Emergency (ER) | END 2017-06-25 10:39 | disposition home or self-care (01) ==

== ENCOUNTER → 2017-09-03 | Outpatient (CLI) | END | disposition home or self-care (01) ==

== ENCOUNTER → 2018-09-28 | Outpatient (CLI) | payer OTHER ==
[~2018-09-28] MED LIST changes: +ADV50050 INH; -ALBU8.5H3 INH; +ALBU8.5H8 INH; +CEPH-443 PO; -FLOV220 INHALATION; +FURO40TA4 PO; -LISI-313 PO; -MEGE40TA PO; +MIRT45TA PO; -PRED20TA PO; +TIOT18CA INH; -TRAM-40 PO; +TRAM50TA PO
== END | disposition home or self-care (01) ==
LOC: PUL 13:48
PROVIDERS: ATTEND Internal Medicine
DX: J44.9 Chronic obstructive pulmonary disease, unspecified (principal)
CPT/HCPCS: 36600; 82803